=== PATIENT | female | born 1935 | race Caucasian/White ===

== ENCOUNTER 2018-01-11 10:08 | Emergency (ER) | payer MEDICARE, BC ==
[2018-01-11 10:13] VITALS: TEMP 97.5
--- NOTE | 2018-01-11 10:48 | ED ---
ENT HPI - General Source: patient Mode of arrival: ambulatory Limitations: no limitations - History of Present Illness MD complaint: other (Left ear) -: hour(s) (10) Location: L ear Improves with: none Worsens with: none Context-Epistaxis: warfarin use <Sharon Noel - Last Filed: 01/11/18 11:16> <Turner Samuel - Last Filed: 01/11/18 11:50> - General Chief complaint: ENT Stated complaint: Blood in Ear Time Seen by Provider: 01/11/18 10:27 - History of Present Illness Initial comments: 82-year-old female presents with left ear bloody discharge that occurred in the middle the night. Patient states he woke up noticing blood on her pillow. Patient denies any pain or trauma. 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 Patient denies any pain or dizziness no trouble with hearing. Patient states it might feel little "full ". No dizziness no fevers no congestion. Patient denies any recent flying or diving or swimming. No history of this. Patient is treated with Coumadin gets checked on a monthly basis which she has not had any change of her dosage in a long time. Patient takes it faithfully. Patient also Dr. chaves on a regular basis. No sinus congestion no sore throat. (Sharon Noel) - Related Data Home Medications Medication Instructions Recorded Confirmed Albuterol Inhaler [Ventolin Hfa 1 - 2 puff INHALATION RT-Q6H PRN 11/18/15 Inhaler] Montelukast [Singulair] 10 mg PO HS 11/18/15 01/11/18 Warfarin [Coumadin] 5 mg PO MOTUWEFRSA 03/26/16 01/11/18 Warfarin [Coumadin] 7.5 mg PO SUTH 03/26/16 01/11/18 Hydrochlorothiazide [Hydrodiuril] 12.5 mg PO DAILY 01/11/18 01/11/18 Previous Rx's Medication Instructions Recorded Aspirin 81 mg PO DAILY #30 chew 11/21/15 Atorvastatin [Lipitor] 40 mg PO DAILY #30 tab 11/21/15 Losartan [Cozaar] 50 mg PO DAILY #30 tab 11/21/15 Metoprolol Tartrate [Lopressor] 50 mg PO BID #60 tab 11/21/15 Nitroglycerin Sl Tabs [Nitrostat] 0.4 mg SUBLINGUAL Q5M PRN #25 tab 11/21/15 Allergies Allergy/AdvReac Type Severity Reaction Status Date / Time No Known Allergies Allergy Verified 01/11/18 10:13 Review of Systems ROS Other: All systems not noted in ROS Statement are negative. Constitutional: Denies: fever, chills ENT: Reports: other (left ear bloody discharge) Respiratory: Denies: cough Cardiovascular: Denies: chest pain Endocrine: Denies: fatigue Gastrointestinal: Denies: abdominal pain, nausea, vomiting Neurological: Denies: headache, weakness, numbness, paresthesias, vertigo <Sharon Noel - Last Filed: 01/11/18 11:16> ROS Other: All systems not noted in ROS Statement are negative. <Turner Samuel - Last Filed: 01/11/18 11:50> ROS Statement: Those systems with pertinent positive or pertinent negative responses have been documented in the HPI. Past Medical History Past Medical History: Asthma, Cancer, Hypertension Additional Past Medical History / Comment(s): breast ca 1993, radiation, chemo History of Any Multi-Drug Resistant Organisms: None Reported Past Surgical History: Tonsillectomy Additional Past Surgical History / Comment(s): left partial mastectomy 1993 Past Psychological History: No Psychological Hx Reported Smoking Status: Never smoker Past Alcohol Use History: Occasional Past Drug Use History: None Reported - Past Family History Father Family Medical History: Cancer Additional Family Medical History / Comment(s): Lung Mother Family Medical History: Coronary Artery Disease (CAD), CVA/TIA <Sharon Noel - Last Filed: 01/11/18 11:16> General Exam Limitations: no limitations General appearance: alert Head exam: Present: atraumatic, normocephalic, normal inspection Eye exam: Present: normal appearance, PERRL, EOMI. Absent: scleral icterus, conjunctival injection, periorbital swelling ENT exam: Present: normal exam, mucous membranes moist. Absent: TM's normal bilaterally (Left ear canal bright red bloody discharge, some removed gently with a Q-tip) Neck exam: Present: normal inspection. Absent: tenderness, meningismus, lymphadenopathy Respiratory exam: Present: normal lung sounds bilaterally. Absent: respiratory distress, wheezes, rales, rhonchi, stridor Cardiovascular Exam: Present: regular rate, normal rhythm, normal heart sounds. Absent: systolic murmur, diastolic murmur, rubs, gallop, clicks Neurological exam: Present: alert, oriented X3, CN II-XII intact Psychiatric exam: Present: normal affect, normal mood Skin exam: Present: warm, dry, intact, normal color. Absent: rash <Sharon Noel - Last Filed: 01/11/18 11:16> Course <Sharon Noel - Last Filed: 01/11/18 11:16> <Turner Samuel - Last Filed: 01/11/18 11:50> Vital Signs 01/11/18 01/11/18 10:11 11:33 Temperature 97.5 F L Pulse Rate 95 75 Respiratory 16 18 Rate Blood Pressure 156/79 145/81 O2 Sat by Pulse 96 94 L Oximetry - Reevaluation(s) Reevaluation #1: 01/11/18 11:50 PA supervision: I personally saw and examined the patient. I reviewed and agree with the PA findings including all diagnostic interpretations and treatment plans as written unless otherwise stated. (Turner Samuel) Procedures - Ear Wax Removal Left Ear Ear Canal Irrigated by: other (In the room with a gentle normal saline advised large clot removed no active bleeding noted patient tolerated it well no combinations no pain no dizziness.) Ear Canal Irrigated With: warm saline using syringe/angiocath Results: Re-examined: other (bloody discharge) Patient Tolerated Procedure: well, no complications Complications: no problems <Sharon Noel - Last Filed: 01/11/18 11:16> Medical Decision Making <Sharon Noel - Last Filed: 01/11/18 11:16> <Turner Samuel - Last Filed: 01/11/18 11:50> - Medical Decision Making evaluated by dr. samuel as well. we decided to lavage. pt tolerated it well, no perforation no silver nitrate was needed. no complications. Patient instructed not to take her with her ear no foreign body to her ear patient to avoid Q-tips at this time (Sharon Noel) Disposition Is patient prescribed a controlled substance at d/c from ED?: No Time of Disposition: 11:24 <Sharon Noel - Last Filed: 01/11/18 11:16> <Turner Samuel - Last Filed: 01/11/18 11:50> Clinical Impression: Bleeding from left ear Disposition: HOME SELF-CARE Condition: Good Instructions: Abrasion (ED) Referrals: Pino Chaves DO [Primary Care Provider] - 1-2 days
[2018-01-11] MEDS ORDERED: SILVER NITRATE APPLICATOR 1 EACH STICK..EA. TOPICAL STA (11:04)
[2018-01-11 11:34] VITALS: BP 145/81; PULSE 75; RESP 18
== END 2018-01-11 11:33 | disposition home or self-care (01) ==
LOC: EC 10:08
DX: H92.22 Otorrhagia, left ear (principal); J45.909 Unspecified asthma, uncomplicated; I10 Essential (primary) hypertension; Z85.3 Personal history of malignant neoplasm of breast; Z79.01 Long term (current) use of anticoagulants; Z79.899 Other long term (current) drug therapy
CPT/HCPCS: 99282

== ENCOUNTER 2018-03-10 05:34 | Inpatient (IN) | payer MEDICARE, BC ==
--- NOTE | 2018-03-10 06:20 | ED ---
SOB HPI - General Chief Complaint: Shortness of Breath Stated Complaint: JIA Time Seen by Provider: 03/10/18 05:35 Source: patient, family, EMS Mode of arrival: EMS Limitations: no limitations - History of Present Illness Initial Comments: This patient is an 82-year-old woman with history of previous CHF who states that her breathing has not been good for months, but over the course of tonight it is been much worse than usual. She states that she tried using inhaler at home but was not feeling much better. Family phoned EMS and she did feel a bit better after they placed her on oxygen. The patient states that her breathing is made worse if she tries to lie flat. She denies fever or chills. No chest pain. She states she is not really having much of a cough. No change in urination. She denies swelling or pain in the legs. MD Complaint: shortness of breath -: hour(s) Severity: moderate Consistency: constant Improves With: nothing Worsens With: lying flat Known History Of: congestive heart failure Associated Symptoms: denies other symptoms Treatments Prior to Arrival: oxygen - Related Data Home Medications Medication Instructions Recorded Confirmed Albuterol Inhaler [Ventolin Hfa 1 - 2 puff INHALATION RT-Q6H PRN 11/18/15 Inhaler] Montelukast [Singulair] 10 mg PO HS 11/18/15 01/11/18 Warfarin [Coumadin] 5 mg PO MOTUWEFRSA 03/26/16 01/11/18 Warfarin [Coumadin] 7.5 mg PO SUTH 03/26/16 01/11/18 Hydrochlorothiazide [Hydrodiuril] 12.5 mg PO DAILY 01/11/18 01/11/18 Previous Rx's Medication Instructions Recorded Aspirin 81 mg PO DAILY #30 chew 11/21/15 Atorvastatin [Lipitor] 40 mg PO DAILY #30 tab 11/21/15 Losartan [Cozaar] 50 mg PO DAILY #30 tab 11/21/15 Metoprolol Tartrate [Lopressor] 50 mg PO BID #60 tab 11/21/15 Nitroglycerin Sl Tabs [Nitrostat] 0.4 mg SUBLINGUAL Q5M PRN #25 tab 11/21/15 Allergies Allergy/AdvReac Type Severity Reaction Status Date / Time No Known Allergies Allergy Verified 01/11/18 10:13 Review of Systems ROS Statement: Those systems with pertinent positive or pertinent negative responses have been documented in the HPI. ROS Other: All systems not noted in ROS Statement are negative. Constitutional: Denies: fever, chills, weakness Respiratory: Reports: dyspnea, wheezes. Denies: cough, hemoptysis Cardiovascular: Reports: palpitations, orthopnea. Denies: chest pain, edema, syncope Gastrointestinal: Denies: abdominal pain, vomiting, diarrhea Genitourinary: Denies: dysuria, hematuria Musculoskeletal: Denies: back pain Skin: Denies: rash Neurological: Denies: headache, weakness, numbness Past Medical History Past Medical History: Asthma, Cancer, Hypertension Additional Past Medical History / Comment(s): breast ca 1993, radiation, chemo History of Any Multi-Drug Resistant Organisms: None Reported Past Surgical History: Heart Catheterization With Stent, Tonsillectomy Additional Past Surgical History / Comment(s): left partial mastectomy 1993 Past Psychological History: No Psychological Hx Reported Smoking Status: Never smoker Past Alcohol Use History: Occasional Past Drug Use History: None Reported - Past Family History Father Family Medical History: Cancer Additional Family Medical History / Comment(s): Lung Mother Family Medical History: Coronary Artery Disease (CAD), CVA/TIA General Exam Limitations: no limitations General appearance: alert, in no apparent distress Head exam: Present: atraumatic, normocephalic Eye exam: Present: normal appearance. Absent: scleral icterus, conjunctival injection ENT exam: Present: normal oropharynx Neck exam: Present: normal inspection Respiratory exam: Present: rales. Absent: wheezes, rhonchi, stridor, chest wall tenderness, decreased breath sounds Cardiovascular Exam: Present: tachycardia, irregular rhythm, normal heart sounds. Absent: systolic murmur, diastolic murmur, rubs, gallop GI/Abdominal exam: Present: soft. Absent: distended, tenderness, guarding, rebound, rigid, mass Extremities exam: Present: normal inspection, normal capillary refill. Absent: pedal edema, calf tenderness Back exam: Present: normal inspection. Absent: CVA tenderness (R), CVA tenderness (L) Neurological exam: Present: alert Skin exam: Present: warm, dry, intact, normal color. Absent: rash Course Vital Signs 03/10/18 05:44 Temperature 97.6 F Pulse Rate 106 H Respiratory 22 Rate Blood Pressure 153/102 O2 Sat by Pulse 99 Oximetry Medical Decision Making - Lab Data Result diagrams: 03/10/18 06:45 Lab Results 03/10/18 Range/Units 06:45 WBC 10.0 (3.8-10.6) k/uL RBC 4.50 (3.80-5.40) m/uL Hgb 13.1 (11.4-16.0) gm/dL Hct 42.4 (34.0-46.0) % MCV 94.4 (80.0-100.0) fL MCH 29.2 (25.0-35.0) pg MCHC 31.0 (31.0-37.0) g/dL RDW 15.1 (11.5-15.5) % Plt Count 140 L (150-450) k/uL Neutrophils % 87 % Lymphocytes % 7 % Monocytes % 4 % Eosinophils % 1 % Basophils % 0 % Neutrophils # 8.7 H (1.3-7.7) k/uL Lymphocytes # 0.7 L (1.0-4.8) k/uL Monocytes # 0.4 (0-1.0) k/uL Eosinophils # 0.1 (0-0.7) k/uL Basophils # 0.0 (0-0.2) k/uL Hypochromasia Slight - EKG Data -: EKG Interpreted by Or EKG shows normal: axis (Normal), intervals (Normal), QRS complexes (Old septal infarct.), ST-T waves (normal) Rate: tachycardia Interpretation: other (Atrial fibrillation.) Disposition Clinical Impression: Atrial fibrillation with RVR, CHF (congestive heart failure) Disposition: ADMITTED IP TO THIS HOSP Condition: Fair Referrals: Dian Pal MD [STAFF PHYSICIAN] - 1-2 days
--- NOTE | 2018-03-10 06:40 | XR ---
EXAM: XR Chest, 1 View CLINICAL HISTORY: ITS.REASON XR Reason: dyspnea TECHNIQUE: Frontal view of the chest. COMPARISON: 03/26/16 FINDINGS: Lungs: Slight interval increase in bilateral interstitial opacities which may reflect worsening pulmonary edema or other interstitial process. Pleural space: Unremarkable. No pneumothorax. Heart: Heart size appears mildly enlarged possibly exaggerated due to projection. Mediastinum: Unremarkable. Bones/joints: Unremarkable. Soft tissues: Left axillary surgical clips. IMPRESSION: Slight interval increase in bilateral interstitial opacities which may reflect worsening pulmonary edema or other interstitial process.
[2018-03-10 06:56] LABS: Basophils % (A) 0 %; Eosinophils # (A) 0.1 k/uL (0-0.7); Eosinophils % (A) 1 %; HCT 42.4 % (34.0-46.0); HGB 13.1 gm/dL (11.4-16.0); Hypochromasia Slight; Lymphocytes # (A) 0.7 k/uL (1.0-4.8); Lymphocytes % (A) 7 %; MCH 29.2 pg (25.0-35.0); MCV 94.4 fL (80.0-100.0); Mean Platelet Volume 8.7; Monocytes # (A) 0.4 k/uL (0-1.0); Monocytes % (A) 4 %; Neutrophils # (A) 8.7 k/uL (1.3-7.7); Neutrophils % (A) 87 %; Platelet Count 140 k/uL (150-450); RDW 15.1 % (11.5-15.5)
[2018-03-10] MEDS ORDERED: DILTIAZEM DRIP BOLUS FROM BAG 1 MG SOLN IV ONE (07:00)
[2018-03-10] MEDS ORDERED: FUROSEMIDE 10 MG/ML 2 ML VIAL IV STA (07:03)
[2018-03-10 07:07] LABS: ALT 104 U/L (9-52); AST 87 U/L (14-36); Albumin 3.3 g/dL (3.5-5.0); Alkaline Phosphatase 145 U/L (38-126); Anion Gap 5 mmol/L; Blood Urea Nitrogen 18 mg/dL (7-17); Calcium 8.8 mg/dL (8.4-10.2); Carbon Dioxide 29 mmol/L (22-30); Chloride 103 mmol/L (98-107); Glucose 156 mg/dL (74-99); Magnesium 1.8 mg/dL (1.6-2.3); Potassium 4.1 mmol/L (3.5-5.1); Sodium 137 mmol/L (137-145); Total Protein 5.8 g/dL (6.3-8.2)
[2018-03-10 07:13] LABS: D-Dimer 0.51 mg/L FEU (<0.60); INR 3.3 (<1.2); Partial Thromboplastin Time 28.9 sec (22.0-30.0); Prothrombin Time 29.9 sec (9.0-12.0)
[2018-03-10 07:48] LABS: Creatine Kinase 51 U/L (30-135)
[2018-03-10] MEDS ORDERED: DILTIAZEM 50 MG in SODIUM CHLORIDE 0.9% 40 ML IV SCH (08:00)
[2018-03-10 08:01] LABS: Troponin I <0.012 ng/mL (0.000-0.034)
[2018-03-10] MEDS ORDERED: ALBUTEROL NEBULIZED 2.5 MG/3 ML INHALATION PRN (09:17)
[2018-03-10] MEDS ORDERED: INFLUENZA VACCINE (6 MOS+) 60 MCG/0.5 ML SYRINGE IM ONE (11:34)
--- NOTE | 2018-03-10 12:09 | P.CRDCN ---
History of Present Illness Consult date: 03/10/18 Requesting physician: Shay Wilson Consult reason: atrial fibrillation, congestive heart failure Chief complaint: Shortness of breath History of present illness: Is is an 82-year-old female who follows regularly with Dr. Davis in the office. She has a known history of hypertension, bronchial asthma, hyperlipidemia, prior CVA, coronary artery disease with history of circumflex stenting in 2016 patient also has history of paroxysmal atrial fibrillation for which she takes Coumadin for anticoagulation. She presents to the hospital with symptoms of progressively worsening shortness of breath, positive PND and orthopnea. She states that on thickened Thanksgiving she was feeling well but since then has been progressively getting more and more short of breath. Chest x-ray on admission here showed slight interval increase in bilateral interstitial [place] which may reflect worsening pulmonary edema. Her EKG on presentation here showed atrial fibrillation with rapid ventricular response. Blood pressure 134/70 with a heart rate this morning in the 80s, on Cardizem drip. White blood cell count 10.0, hemoglobin 13.1, platelet count 140. D-dimer 0.5. Sodium 137, potassium 4.1, BUN 18, creatinine 0.5. Troponin 0.012, BNP level 3370. INR is 3.3. AST 87, ALT 104, alk phos 145. At the time of my examination this morning, patient is sitting up at bedside, overall feels well, denies any difficulty in breathing. Past Medical History Past Medical History: Atrial Fibrillation, Asthma, Cancer, Hypertension, Myocardial Infarction ([place]) Additional Past Medical History / Comment(s): Paroxysmal Afib, 1993 L breast cancer with surgery/radiation and chemo, pt states she has never had high cholesterol-she was placed on lipitor prophylactically when she had her MO, CHF with HTN emergency when she had her MO. Last Myocardial Infarction Date:: 11/18/15 History of Any Multi-Drug Resistant Organisms: None Reported Past Surgical History: Breast Surgery, Heart Catheterization With Stent, Tonsillectomy Additional Past Surgical History / Comment(s): left partial mastectomy 1993, PCI with stent in 2016, bilateral cataract removals with lens implants. Past Anesthesia/Blood Transfusion Reactions: No Reported Reaction Date of Last Stent Placement:: 2015 Smoking Status: Never smoker - Past Family History Father Family Medical History: Cancer Additional Family Medical History / Comment(s): Lung cancer. Father was a smoker. Mother Family Medical History: Coronary Artery Disease (CAD), CVA/TIA Additional Family Medical History / Comment(s): CVA Medications and Allergies Home Medications Medication Instructions Recorded Confirmed Type Albuterol Inhaler [Ventolin Hfa 1 - 2 puff INHALATION RT-Q4H PRN 11/18/15 History Inhaler] Montelukast [Singulair] 10 mg PO HS 11/18/15 03/10/18 History Aspirin 81 mg PO DAILY #30 chew 11/21/15 03/10/18 Rx Atorvastatin [Lipitor] 40 mg PO DAILY #30 tab 11/21/15 03/10/18 Rx Metoprolol Tartrate [Lopressor] 50 mg PO BID #60 tab 11/21/15 03/10/18 Rx Nitroglycerin Sl Tabs [Nitrostat] 0.4 mg SUBLINGUAL Q5M PRN #25 tab 11/21/15 Rx Hydrochlorothiazide [Hydrodiuril] 12.5 mg PO DAILY 01/11/18 03/10/18 History Calcium Carbonate [Calcium] 600 mg PO DAILY 03/10/18 03/10/18 History Warfarin Sodium 2.5 mg PO TH 03/10/18 03/10/18 History Warfarin Sodium 5 mg PO [id number] 03/10/18 03/10/18 History Allergies Allergy/AdvReac Type Severity Reaction Status Date / Time No Known Allergies Allergy Verified 03/10/18 08:21 Physical Exam Vitals: Vital Signs Temp Pulse Pulse Resp BP BP Pulse Ox 03/10/18 11:20 97.7 F 83 18 134/74 97 03/10/18 10:00 84 19 105/72 96 03/10/18 09:00 85 14 96 03/10/18 08:00 105 H 20 124/73 95 03/10/18 07:03 98.1 F 101 H 20 152/106 98 03/10/18 07:00 96 20 143/93 115 H 03/10/18 06:00 97 20 163/96 97 03/10/18 05:44 97.6 F 106 H 22 153/102 99 03/10/18 05:40 98 Intake and Output 03/09/18 03/10/18 03/10/18 22:59 06:59 14:59 Intake Total 30 Output Total 200 Balance -170 Intake: Intake, IV Titration 30 Amount Diltiazem 50 mg In Sodium 30 Chloride 0.9% 40 ml @ 5 MG/HR 5 mls/hr IV .Q10H [facility] Rx#:[id number] Output: Urine 200 Other: Weight 72.575 kg PHYSICAL EXAMINATION: GENERAL: 82-year-old female in no acute distress at the time of my examination HEENT: Head is atraumatic, normocephalic. Pupils equal, round. Sclera anicteric. Conjunctiva are clear. Mucous membranes of the mouth are moist. Neck is supple. There is elevated jugular venous pressure. No carotid bruit is heard. HEART EXAMINATION: Heart S1 and S2 irregularly irregular CHEST EXAMINATION: Lungs are clear with diminished air entry to bilateral bases. ABDOMEN: Soft, nontender. Bowel sounds are heard. No organomegaly noted. EXTREMITIES: 2+ peripheral pulses with trace to 1+ evidence of peripheral edema and no calf tenderness noted. NEUROLOGIC patient is awake, alert and oriented X3. . Results 03/10/18 06:45 03/10/18 06:45 Cardiac Enzymes 03/10/18 03/10/18 Range/Units 06:45 06:45 AST 87 H (14-36) U/L CK-MB (CK-2) 1.0 (0.0-2.4) ng/mL Troponin I <0.012 (0.000-0.034) ng/mL Coagulation 03/10/18 Range/Units 06:45 PT 29.9 H (9.0-12.0) sec APTT 28.9 (22.0-30.0) sec CBC 03/10/18 Range/Units 06:45 WBC 10.0 (3.8-10.6) k/uL RBC 4.50 (3.80-5.40) m/uL Hgb 13.1 (11.4-16.0) gm/dL Hct 42.4 (34.0-46.0) % Plt Count 140 L (150-450) k/uL Comprehensive Metabolic Panel 03/10/18 Range/Units 06:45 Sodium 137 (137-145) mmol/L Potassium 4.1 (3.5-5.1) mmol/L Chloride 103 (98-107) mmol/L Carbon Dioxide 29 (22-30) mmol/L BUN 18 H (7-17) mg/dL Creatinine 0.57 (0.52-1.04) mg/dL Glucose 156 H (74-99) mg/dL Calcium 8.8 (8.4-10.2) mg/dL AST 87 H (14-36) U/L ALT 104 H (9-52) U/L Alkaline Phosphatase 145 H (38-126) U/L Total Protein 5.8 L (6.3-8.2) g/dL Albumin 3.3 L (3.5-5.0) g/dL Current Medications Generic Name Dose Route Start Last Admin Trade Name Freq PRN Reason Stop Dose Admin Albuterol Sulfate 2.5 mg 03/10/18 09:17 Ventolin Nebulized INHALATION RT-Q4H PRN Shortness Of Breath Aspirin 81 mg 03/11/18 09:00 Aspirin PO DAILY [facility] Atorvastatin Calcium 40 mg 03/11/18 09:00 Lipitor PO DAILY [facility] Furosemide 40 mg 03/10/18 18:00 Lasix IV Q12H [facility] Hydrochlorothiazide 12.5 mg 03/11/18 09:00 Hydrodiuril PO DAILY [facility] Diltiazem HCl 50 mg/ Sodium 50 mls @ 5 mls/hr 03/10/18 08:00 03/10/18 07:38 Chloride IV 5 mg/hr .Q10H [facility] 5 mls/hr Administration 5 MG/HR Metoprolol Tartrate 50 mg 03/10/18 21:00 Lopressor PO BID [facility] Montelukast Sodium 10 mg 03/10/18 21:00 Singulair PO HS [facility] Warfarin Sodium 5 mg 03/11/18 18:00 Coumadin PO [id number]@1800 [facility] Warfarin Sodium 2.5 mg 03/12/18 18:00 Coumadin PO Th@1800 [facility] Intake and Output 03/09/18 03/10/18 03/10/18 22:59 06:59 14:59 Intake Total 30 Output Total 200 Balance -170 Intake: Intake, IV Titration 30 Amount Diltiazem 50 mg In Sodium 30 Chloride 0.9% 40 ml @ 5 MG/HR 5 mls/hr IV .Q10H [facility] Rx#:[id number] Output: Urine 200 Other: Weight 72.575 kg 03/10/18 06:45 03/10/18 06:45 EKG Interpretations (text) KG shows atrial fibrillation with rapid ventricular response Assessment and Plan Plan: Assessment and plan #1 atrial fibrillation with rapid ventricular response, patient has history of paroxysmal atrial fibrillation. #2 known history of coronary artery disease with prior circumflex stenting in 2016 #3 hypertension #4 hyperlipidemia #5 bronchial asthma #6 history of prior CVA #7 congestive heart failure, likely secondary to A. fib with RVR, diastolic acute on chronic Plan We will obtain an echocardiogram with Doppler study, we will also check a free T4 and a TSH level. We will discontinue the IV Cardizem drip and increase the dose of beta [place]. INR today is 3.3, we will give the patient just 2-1/2 of Coumadin today instead of the 5 she is normally scheduled for. Further recommendations to follow. DNP note has been reviewed, I agree with a documented findings and plan of care. Patient was seen and examined.
[2018-03-10] MEDS: METOPROLOL TARTRATE 50 MG TAB PO SCH ×2 (15:14→21:36)
[2018-03-10 16:43] LABS: Creatine Kinase MB 1.1 ng/mL (0.0-2.4); Troponin I <0.012 ng/mL (0.000-0.034)
[2018-03-10] MEDS: SPIRONOLACTONE 25 MG TAB PO SCH (17:46)
[2018-03-10] MEDS: LISINOPRIL 5 MG TAB PO SCH (17:46)
[2018-03-10] MEDS: FUROSEMIDE 10 MG/ML 4 ML VIAL IV SCH (17:55)
[2018-03-10] MEDS ORDERED: MAGNESIUM HYDROXIDE 2,400 MG/10 ML CUP PO PRN (20:09)
[2018-03-10] MEDS ORDERED: ONDANSETRON 4 MG/2 ML VIAL IVP PRN (20:09)
[2018-03-10] MEDS ORDERED: MELATONIN 3 MG TABLET PO PRN (20:09)
[2018-03-10] MEDS ORDERED: CALCIUM CARBONATE 500 MG CHEWABLE PO PRN (20:09)
[2018-03-10] MEDS ORDERED: NALOXONE 0.4 MG/ML 1 ML VIAL IV PRN (20:09)
[2018-03-10] MEDS ORDERED: LACTULOSE 20 GM/30 ML CUP PO PRN (20:09)
[2018-03-10] MEDS ORDERED: LORazepam 0.5 MG TAB PO PRN (20:09)
[2018-03-10] MEDS ORDERED: ACETAMINOPHEN TAB 325 MG TAB PO PRN (20:09)
--- NOTE | 2018-03-10 20:50 | HP ---
HISTORY AND PHYSICAL DATE OF ADMISSION: March 10, 2018 DATE OF SERVICE: March 10, 2018 PRESENTING COMPLAINT: Short of breath. HISTORY OF PRESENTING COMPLAINT: This is a pleasant 82-year-old patient of Dr. Chaves. Also follows with Dr. Davis from Cardiology. Chronic stable medical conditions include asthma, hypertension, coronary artery disease with stent. The patient did have myocardial infarction 2 years ago. For 2 days, patient noticed increasing shortness of breath, slight wheezing, swelling of lower extremities. No fever. No chills. No cough. Just tired and run down. The patient was found to be in congestive heart failure, given IV Lasix to which she is feeling a shade better. Patient's at the bedside. The patient also found to be in atrial fibrillation which is chronic, but with a rapid ventricular rate. REVIEW OF SYSTEMS: CONSTITUTIONAL: Tired. HEENT none. RESPIRATORY as above. CARDIOVASCULAR as above. GASTROINTESTINAL: None. GENITOURINARY: None. MUSCULOSKELETAL: None. DERMATOLOGICAL, HEMATOLOGIC, LYMPHATIC: None. PSYCHIATRY: None. NEUROLOGICAL: None. PAST MEDICAL HISTORY: Atrial fibrillation, asthma, hypertension, coronary artery disease with stent, paroxysmal atrial fibrillation, left breast cancer treated with surgery revision and chemo. PAST SURGICAL HISTORY: Left breast surgery, cardiac cath with stent, left partial mastectomy in , stent in 2015, bilateral cataract with lens implant. 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 Alcohol occasionally. FAMILY HISTORY: Lung cancer. HOME MEDICATIONS: 1. Coumadin 2.5 mg on and 5 mg on Friday, Friday, Friday, Friday, Friday, Friday. 2. Calcium 600 mg a day. 3. Nitrostat 0.4 sublingual q.5 p.r.n. 4. Singulair 10 mg q.h.s. 5. Lopressor 50 mg b.i.d. 6. Hydrochlorothiazide 12.5 p.o. daily. 7. Lipitor 40 mg p.o. daily. 8. Aspirin 81 mg p.o. daily. 9. Ventolin HFA 1 or 2 puffs q.4 p.r.n. ALLERGIES: None. PHYSICAL EXAMINATION: VITAL SIGNS: Vital signs on presentation, temperature 97.6. Pulse 106. Respiration 22, blood pressure 153/102, pulse ox 99% on 2 L. GENERAL APPEARANCE: Average build, sitting up, tired appearing. EYES: Pupils equal, conjunctivae normal. HEENT: External appearance of nose and ears normal. Oral cavity normal. NECK: Neck veins prominent. Mass not palpable. RESPIRATORY: Effort increased. LUNGS: Decreased breath sounds, basal crackles. CARDIOVASCULAR: Heart sounds irregular. Edema present. ABDOMEN: Soft, nontender. Liver and spleen not palpable. LYMPHATICS: No lymph nodes palpable in the neck and axilla. PSYCHIATRY: Alert and oriented x3. Mood and affect normal. NEUROLOGICAL: Pupils equal. Cranial nerves grossly intact. Power and sensation grossly intact. INVESTIGATIONS: Investigations and lab work reviewed in the clinical context. White count 10, hemoglobin 13.1, platelets 140. INR 3.3. Potassium 4.1, BUN 18, creatinine 0.57, AST 87, ALT 104. ProBNP 3370. TSH 5.3. Troponin x2 negative. EKG shows atrial fibrillation, rate uncontrolled, personally reviewed by me. Chest x-ray film personally reviewed by me shows cardiomegaly and pulmonary edema. ASSESSMENT: 1. Acute congestive heart failure exacerbation EF not known in a patient with known from underlying coronary artery disease. 2. Paroxysmal atrial fibrillation currently with rapid ventricular rate. 3. Essential hypertension. 4. Coumadin monitoring. 5. Mild thrombocytopenia. PLAN: Home medications resumed. Lopressor was increased to 50 mg 3 times a day. Coumadin dose was scaled back. Patient is put on IV Lasix. 2D echo cardiogram is pending. Care was discussed with the patient and at the bedside. Questions were answered. Copy to Dr. Chaves. CAILIN / CJ: [id number] /
[2018-03-10] MEDS ORDERED: METOPROLOL TARTRATE 50 MG TAB PO SCH (21:00)
[2018-03-10 21:17] LABS: Creatine Kinase MB 0.9 ng/mL (0.0-2.4); Troponin I <0.012 ng/mL (0.000-0.034)
[2018-03-10] MEDS: MONTELUKAST 10 MG TAB PO SCH (21:36)
[2018-03-11] MEDS: FUROSEMIDE 10 MG/ML 4 ML VIAL IV SCH (05:58)
[2018-03-11 06:18] LABS: Anion Gap 4 mmol/L; Blood Urea Nitrogen 20 mg/dL (7-17); Calcium 8.8 mg/dL (8.4-10.2); Carbon Dioxide 33 mmol/L (22-30); Chloride 103 mmol/L (98-107); Glucose 101 mg/dL (74-99); Potassium 3.9 mmol/L (3.5-5.1); Sodium 140 mmol/L (137-145)
--- NOTE | 2018-03-11 07:02 | ECHOF ---
Referral Reason:afib,chf MEASUREMENTS -------- HEIGHT: 160.0 cm WEIGHT: 72.6 kg BP: 134/74 RVIDd: 2.6 cm (< 3.3) IVSd: 1.0 cm (0.6 - 1.1) LVIDd: 4.3 cm (3.9 - 5.3) LVPWd: 1.0 cm (0.6 - 1.1) IVSs: 1.3 cm LVIDs: 3.4 cm LVPWs: 1.3 cm LAESV Index (A-L): 32.53 ml/m Ao Diam: 2.7 cm (2.0 - 3.7) AV Cusp: 1.5 cm (1.5 - 2.6) LA Diam: 2.9 cm (2.7 - 3.8) MV E Jag: 1.18 m/s MV DecT: 176 ms MV A Jag: 0.43 m/s MV E/A Ratio: 2.77 RAP: 5.00 mmHg RVSP: 34.51 mmHg FINDINGS -------- Atrial fibrillation. This was a technically adequate study. The left ventricular size is normal. Left ventricular wall thickness is normal. There is moderate global hypokinesis of LV . Overall left ventricular systolic function is mild-moderately impaired with, an EF between 40 - 45 %. The right ventricle is normal in size and function. LA is midly dilated 29-33ml/m2. RA appears enlarged. There is mild aortic valve sclerosis. There is no evidence of aortic regurgitation. There is no e vidence of aortic stenosis. The mitral valve leaflets are mildly thickened. Moderate mitral regurgitation is present. Moderate to severe tricuspid regurgitation present. There is no evidence of pulmonary hypertension. The right ventricular systolic pressure, as measured by Doppler, is 34.51mmHg. The pulmonic valve was not well visualized. There is no pulmonic regurgitation present. The aortic root size is normal. Normal inferior vena cava with normal inspiratory collapse consistent with estimated right atrial pre ssure of 5 mmHg. There is no pericardial effusion. CONCLUSIONS -------- 1. Atrial fibrillation. 2. This was a technically adequate study. 3. The left ventricular size is normal. 4. Left ventricular wall thickness is normal. 5. There is moderate global hypokinesis of LV . 6. Overall left ventricular systolic function is mild-moderately impaired with, an EF between 40 - 45 %. 7. LA is midly dilated 29-33ml/m2. 8. RA appears enlarged. 9. There is mild aortic valve sclerosis. 10. The mitral valve leaflets are mildly thickened. 11. Moderate mitral regurgitation is present. 12. Moderate to severe tricuspid regurgitation present. 13. There is no evidence of pulmonary hypertension. 14. The pulmonic valve was not well visualized. 15. There is no pulmonic regurgitation present. 16. The aortic root size is normal. 17. There is no pericardial effusion. CLEAT THROWER: Chauncey Greene RDCS
[2018-03-11] MEDS: SPIRONOLACTONE 25 MG TAB PO SCH (08:47)
[2018-03-11] MEDS: ATORVASTATIN 40 MG TAB PO SCH (08:48)
[2018-03-11] MEDS: ASPIRIN 81 MG PO SCH (08:48)
[2018-03-11] MEDS: METOPROLOL TARTRATE 50 MG TAB PO SCH ×3 (08:48→21:02)
[2018-03-11 09:39] LABS: INR 2.7 (<1.2)
[2018-03-11] MEDS: HYDROCHLOROTHIAZIDE 12.5 MG CAP PO SCH (12:51)
--- NOTE | 2018-03-11 15:47 | P.PN ---
Subjective Progress Note Date: 03/11/18 This is an 82-year-old female who follows regularly with Dr. Davis in the office. She has a known history of hypertension, bronchial asthma, hyperlipidemia, prior CVA, coronary artery disease with history of circumflex stenting in 2016 patient also has history of paroxysmal atrial fibrillation for which she takes Coumadin for anticoagulation. She presents to the hospital with symptoms of progressively worsening shortness of breath, positive PND and orthopnea. She states that on thickened Thanksgiving she was feeling well but since then has been progressively getting more and more short of breath. Chest x-ray on admission here showed slight interval increase in bilateral interstitial [place] which may reflect worsening pulmonary edema. Her EKG on presentation here showed atrial fibrillation with rapid ventricular response. Blood pressure 134/70 with a heart rate this morning in the 80s, on Cardizem drip. White blood cell count 10.0, hemoglobin 13.1, platelet count 140. D-dimer 0.5. Sodium 137, potassium 4.1, BUN 18, creatinine 0.5. Troponin 0.012, BNP level 3370. INR is 3.3. AST 87, ALT 104, alk phos 145. At the time of my examination this morning, patient is sitting up at bedside, overall feels well, denies any difficulty in breathing. 03/11/2018 Patient continues to be in atrial fibrillation this morning, we will start the patient on amiodarone in hopes to convert to normal sinus rhythm. Patient diuresed well through the night last night. Echocardiogram with Doppler study revealed an ejection fraction of 40-45%. Blood pressure 101/60, heart rate in the 70s, 94% on room air. Pro time 24 with an INR of 2.7. Sodium 140, potassium 3.9, BUN 20, creatinine 0.6. We will discontinue the IV Lasix today and start the patient on oral diuretics. Blood pressure was running a low earlier today, we decreased the dose of JOHN inhibitor to 2-1/2, we will give that at noon daily. Objective - Vital Signs Vital signs: Vital Signs Temp 98.0 F 03/11/18 11:15 Pulse 92 03/11/18 11:15 Resp 18 03/11/18 11:15 BP 101/61 03/11/18 11:15 Pulse Ox 94 L 03/11/18 11:15 Intake & Output 03/10/18 03/11/18 03/11/18 18:59 06:59 18:59 Intake Total 430 880 Output Total 200 1700 Balance 230 -1700 880 Weight 72.1 kg Intake: Intake, IV Titration 30 Amount Diltiazem 50 mg In Sodium 30 Chloride 0.9% 40 ml @ 5 MG/HR 5 mls/hr IV .Q10H [facility] Rx#:[id number] Oral 400 880 Output: Urine 200 1700 Other: Voiding Method Toilet - Exam PHYSICAL EXAMINATION: GENERAL: 82-year-old female in no acute distress at the time of my examination HEENT: Head is atraumatic, normocephalic. Pupils equal, round. Sclera anicteric. Conjunctiva are clear. Mucous membranes of the mouth are moist. Neck is supple. There is elevated jugular venous pressure. No carotid bruit is heard. HEART EXAMINATION: Heart S1 and S2 irregularly irregular CHEST EXAMINATION: Lungs are clear to auscultation ABDOMEN: Soft, nontender. Bowel sounds are heard. No organomegaly noted. EXTREMITIES: 2+ peripheral pulses with trace to 1+ evidence of peripheral edema and no calf tenderness noted. NEUROLOGIC patient is awake, alert and oriented X3. - Labs CBC & Chem 7: 03/10/18 06:45 03/11/18 05:33 Labs: Abnormal Lab Results - Last 24 Hours (Table) 03/11/18 03/11/18 Range/Units 05:33 08:51 PT 24.0 H (9.0-12.0) sec INR 2.7 H (<1.2) Carbon Dioxide 33 H (22-30) mmol/L BUN 20 H (7-17) mg/dL Glucose 101 H (74-99) mg/dL Assessment and Plan Plan: Assessment and plan #1 atrial fibrillation with rapid ventricular response, patient has history of paroxysmal atrial fibrillation. #2 known history of coronary artery disease with prior circumflex stenting in 2016 #3 hypertension #4 hyperlipidemia #5 bronchial asthma #6 history of prior CVA #7 congestive heart failure, likely secondary to A. fib with RVR, diastolic acute on chronic Plan Echo cardiogram with Doppler study revealed an ejection fraction of 40-45%. Patient diuresed well with IV Lasix. We will discontinue the IV Lasix and start the patient on oral diuretics. We will also start the patient on a by mouth amiodarone in hopes to convert to normal sinus rhythm. The patient does not convert to normal sinus rhythm, we may consider elective cardioversion. This was discussed with the patient and her daughter in detail. DNP note has been reviewed, I agree with a documented findings and plan of care. Patient was seen and examined.
[2018-03-11] MEDS ORDERED: AMIODARONE 200 MG TAB PO STA (15:58)
[2018-03-11] MEDS ORDERED: WARFARIN 5 MG TAB PO SCH (18:00)
[2018-03-11] MEDS: LISINOPRIL 5 MG TAB PO SCH (18:02)
[2018-03-11] MEDS: MONTELUKAST 10 MG TAB PO SCH (21:02)
[2018-03-11] MEDS: AMIODARONE 200 MG TAB PO SCH (21:02)
--- NOTE | 2018-03-12 05:36 | PN ---
PROGRESS NOTE DATE OF SERVICE: 03/11/2018 PRESENTING COMPLAINT: Short of breath. INTERVAL HISTORY: This patient was seen by me yesterday on 03/11/2018. Patient admitted with CHF exacerbation, had been on IV Lasix. Breathing is much better. Remains in atrial fibrillation. Did tolerate some diet. The patient's daughter is present today. Edema has gone down. REVIEW OF SYSTEMS: Done for constitutional, cardiovascular, GI, pulmonary; relevant findings as above. The patient did walk up to the bathroom. CURRENT MEDICATIONS: Current medications are reviewed include now p.o. Lasix. PHYSICAL EXAMINATION: On examination, temperature 97.6, pulse 61, respiration 18, blood pressure 100/43, pulse ox 94% on room air. GENERAL APPEARANCE: Sitting on bed comfortable. EYES: Pupils equal. Conjunctivae normal. NECK: JVD not raised. Mass not palpable. RESPIRATORY: Effort normal. LUNGS: Improved air entry. CARDIOVASCULAR: Heart sounds irregular. Minimal edema. ABDOMEN: Soft, nontender. Liver and spleen not palpable. PSYCHIATRY: Alert and oriented x3. Mood and affect normal. INVESTIGATIONS: INR is 2.7. Potassium 3.9, BUN 20, creatinine 0.64. ASSESSMENT: 1. Acute congestive heart failure from systolic dysfunction, ejection fraction 40% to 45% with clinical response. 2. Moderate mitral regurgitation along with moderate to severe tricuspid regurgitation, non-rheumatic. 3. Persistent atrial fibrillation. 4. Essential hypertension. 5. Coumadin monitoring. PLAN: Patient was switched over to p.o. Lasix. Encouraged to ambulate the patient in the hallway. Patient did walk in the hallway with the daughter. The patient also started on amiodarone per Cardiology. The patient also on Aldactone and Lopressor. Care was discussed. Will follow. MMODL / IJN: [id number] /
[2018-03-12 07:07] LABS: HCT 39.1 % (34.0-46.0); HGB 12.9 gm/dL (11.4-16.0); MCH 30.4 pg (25.0-35.0); MCV 92.1 fL (80.0-100.0); Mean Platelet Volume 7.6; Platelet Count 131 k/uL (150-450); RBC 4.25 m/uL (3.80-5.40); RDW 14.8 % (11.5-15.5); WBC 6.7 k/uL (3.8-10.6)
[2018-03-12 07:12] LABS: INR 2.6 (<1.2)
[2018-03-12 07:22] LABS: Anion Gap 7 mmol/L; Blood Urea Nitrogen 24 mg/dL (7-17); Calcium 8.5 mg/dL (8.4-10.2); Carbon Dioxide 31 mmol/L (22-30); Chloride 100 mmol/L (98-107); Glucose 104 mg/dL (74-99); Potassium 3.7 mmol/L (3.5-5.1); Sodium 138 mmol/L (137-145)
[2018-03-12] MEDS: METOPROLOL TARTRATE 50 MG TAB PO SCH ×3 (09:17→21:16)
[2018-03-12] MEDS: AMIODARONE 200 MG TAB PO SCH ×2 (09:17→21:16)
[2018-03-12] MEDS: HYDROCHLOROTHIAZIDE 12.5 MG CAP PO SCH (09:17)
[2018-03-12] MEDS: FUROSEMIDE 40 MG TAB PO SCH (09:17)
[2018-03-12] MEDS: ATORVASTATIN 40 MG TAB PO SCH (09:17)
[2018-03-12] MEDS: SPIRONOLACTONE 25 MG TAB PO SCH (09:17)
[2018-03-12] MEDS: ASPIRIN 81 MG PO SCH (09:17)
[2018-03-12 09:55] VITALS: BMI 27.9
[2018-03-12] MEDS: LISINOPRIL 2.5 MG TAB PO SCH (12:49)
--- NOTE | 2018-03-12 13:05 | P.PN ---
Subjective Progress Note Date: 03/12/18 This is an 82-year-old female who follows regularly with Dr. Davis in the office. She has a known history of hypertension, bronchial asthma, hyperlipidemia, prior CVA, coronary artery disease with history of circumflex stenting in 2016 patient also has history of paroxysmal atrial fibrillation for which she takes Coumadin for anticoagulation. She presents to the hospital with symptoms of progressively worsening shortness of breath, positive PND and orthopnea. She states that on thickened Thanksgiving she was feeling well but since then has been progressively getting more and more short of breath. Chest x-ray on admission here showed slight interval increase in bilateral interstitial [place] which may reflect worsening pulmonary edema. Her EKG on presentation here showed atrial fibrillation with rapid ventricular response. Blood pressure 134/70 with a heart rate this morning in the 80s, on Cardizem drip. White blood cell count 10.0, hemoglobin 13.1, platelet count 140. D-dimer 0.5. Sodium 137, potassium 4.1, BUN 18, creatinine 0.5. Troponin 0.012, BNP level 3370. INR is 3.3. AST 87, ALT 104, alk phos 145. At the time of my examination this morning, patient is sitting up at bedside, overall feels well, denies any difficulty in breathing. 03/11/2018 Patient continues to be in atrial fibrillation this morning, we will start the patient on amiodarone in hopes to convert to normal sinus rhythm. Patient diuresed well through the night last night. Echocardiogram with Doppler study revealed an ejection fraction of 40-45%. Blood pressure 101/60, heart rate in the 70s, 94% on room air. Pro time 24 with an INR of 2.7. Sodium 140, potassium 3.9, BUN 20, creatinine 0.6. We will discontinue the IV Lasix today and start the patient on oral diuretics. Blood pressure was running a low earlier today, we decreased the dose of JOHN inhibitor to 2-1/2, we will give that at noon daily. 03/12/2018 Patient seen and examined this morning, continues to be in atrial fibrillation, heart rate in the 70s to 80s. Dr. Mclaughlin did have a discussion with Dr. Davis and the patient, decision was made to proceed with elective cardioversion tomorrow. Patient wishes to think about it a little bit further throughout the afternoon, we will tentatively book this. Objective - Vital Signs Vital signs: Vital Signs Temp 97.6 F 03/12/18 09:10 Pulse 90 03/12/18 11:53 Resp 16 03/12/18 11:53 BP 102/66 03/12/18 11:50 Pulse Ox 95 03/12/18 11:50 Intake & Output 03/11/18 03/12/18 03/12/18 18:59 06:59 18:59 Intake Total 1080 200 360 Output Total 1050 300 Balance 30 -100 360 Weight 71.6 kg 71.6 kg Intake: Oral 1080 200 360 Output: Urine 1050 300 Other: Voiding Method Toilet # Voids 1 1 1 - Exam PHYSICAL EXAMINATION: GENERAL: 82-year-old female in no acute distress at the time of my examination HEENT: Head is atraumatic, normocephalic. Pupils equal, round. Sclera anicteric. Conjunctiva are clear. Mucous membranes of the mouth are moist. Neck is supple. There is elevated jugular venous pressure. No carotid bruit is heard. HEART EXAMINATION: Heart S1 and S2 irregularly irregular CHEST EXAMINATION: Lungs are clear to auscultation ABDOMEN: Soft, nontender. Bowel sounds are heard. No organomegaly noted. EXTREMITIES: 2+ peripheral pulses with trace to 1+ evidence of peripheral edema and no calf tenderness noted. NEUROLOGIC patient is awake, alert and oriented X3. - Labs CBC & Chem 7: 03/12/18 05:54 03/12/18 05:54 Labs: Abnormal Lab Results - Last 24 Hours (Table) 03/12/18 03/12/18 03/12/18 Range/Units 05:54 05:54 05:54 Plt Count 131 L (150-450) k/uL PT 23.0 H (9.0-12.0) sec INR 2.6 H (<1.2) Carbon Dioxide 31 H (22-30) mmol/L BUN 24 H (7-17) mg/dL Glucose 104 H (74-99) mg/dL Assessment and Plan Plan: Assessment and plan #1 atrial fibrillation with rapid ventricular response, patient has history of paroxysmal atrial fibrillation. #2 known history of coronary artery disease with prior circumflex stenting in 2016 #3 hypertension #4 hyperlipidemia #5 bronchial asthma #6 history of prior CVA #7 congestive heart failure, likely secondary to A. fib with RVR, diastolic acute on chronic Plan We will continue by mouth amiodarone, patient has been advised to undergo cardioversion tomorrow the risks and the benefits were explained to her and her daughter in detail. This will be tentatively scheduled for tomorrow, patient does wish to think about it this afternoon. DNP note has been reviewed, I agree with a documented findings and plan of care. Patient was seen and examined.
[2018-03-12] MEDS ORDERED: WARFARIN 2.5 MG TAB PO SCH (18:00)
[2018-03-12] MEDS ORDERED: LACTATED RINGERS 1,000 ML IV SCH (18:45)
[2018-03-12] MEDS: MONTELUKAST 10 MG TAB PO SCH (21:16)
--- NOTE | 2018-03-13 00:16 | PN ---
PROGRESS NOTE DATE OF SERVICE: 03/12/2018. PRESENT COMPLAINT: Tired. INTERVAL HISTORY: Patient admitted with CHF exacerbation and atrial fibrillation. Breathing is much improved. Remains in atrial fibrillation. Has been on amiodarone. Cardiology is planning a cardioversion tomorrow. Daughter at the bedside. The patient has been up and about. REVIEW OF SYSTEMS: Done for constitutional, cardiovascular, GI, pulmonary; relevant findings as above. CURRENT MEDICATIONS: Reviewed, that include Amiodarone, Lipitor, p.o. Lasix, Lopressor, Coumadin. PHYSICAL EXAMINATION: Temperature 97.7, pulse 74, respirations 18, blood pressure 109/72, pulse 95% on room air. GENERAL APPEARANCE: Sitting up, comfortable. EYES: Pupils equal. Conjunctivae normal. NECK JVD not raised. Mass not palpable. Respiratory effort normal. LUNGS: Fair air entry. CARDIOVASCULAR: Heart sounds irregular. No edema. ABDOMEN: Soft, nontender. Liver and spleen not palpable. PSYCHIATRY: Alert and oriented x3. Mood and affect normal. INVESTIGATIONS: White count 6.7, INR 2.6, potassium 3.7, BUN 24, creatinine 0.66. ASSESSMENT: 1. Acute congestive heart failure exacerbation from systolic dysfunction, ejection fraction 40% to 45% with normal being euvolemic. 2. Moderate mitral regurgitation with moderate to severe tricuspid regurgitation, non- rheumatic. 3. Persistent atrial fibrillation. 4. Essential hypertension. 5. Coumadin monitoring. PLAN: Patient is on p.o. Lasix. Will DC the hydrochlorothiazide and also Aldactone. Cardiology is planning for cardioversion tomorrow. Patient also on amiodarone. MMODL / IJN: [id number] /
[2018-03-13] MEDS: SODIUM CHLORIDE 0.9% 1,000 ML IV SCH ×2 (05:37→16:08)
[2018-03-13] MEDS: SPIRONOLACTONE 25 MG TAB PO SCH (08:52)
[2018-03-13] MEDS: ATORVASTATIN 40 MG TAB PO SCH (08:52)
[2018-03-13] MEDS: AMIODARONE 200 MG TAB PO SCH (08:52)
[2018-03-13] MEDS: METOPROLOL TARTRATE 50 MG TAB PO SCH (08:52)
[2018-03-13] MEDS: ASPIRIN 81 MG PO SCH (08:52)
[2018-03-13] MEDS: FUROSEMIDE 40 MG TAB PO SCH (08:53)
[2018-03-13 09:14] LABS: INR 3.1 (<1.2); Prothrombin Time 27.8 sec (9.0-12.0)
[2018-03-13] MEDS ORDERED: IV FLUID CONTINUATION 1,000 ML IV ONE (12:21)
[2018-03-13] MEDS ORDERED: ePHEDrine SULFATE/0.9% NACL/PF 50 MG/5 ML SYRINGE IV ONE (12:25)
[2018-03-13] MEDS ORDERED: PROPOFOL 10 MG/ML 20 ML VIAL IV ONE (12:25)
--- NOTE | 2018-03-13 13:26 | CE ---
CARDIAC ELECTROPHYSIOLOGY REPORT CARDIOVERSION: INDICATION: Atrial fibrillation. PROCEDURE: After explaining the procedure to the patient, its risks and the complications, blood pressure, heart rate, O2 saturation was monitored. After obtaining sedation state and performing transesophageal echocardiogram, a synchronized biphasic cardioversion using 100 joules was unsuccessful in restoring sinus mechanism. Subsequently, 200 joules synchronized biphasic were successful in restoring normal sinus rhythm. There was no immediate complication. CAILIN / KATYAN: [id number] /
--- NOTE | 2018-03-13 13:35 | ECHOT ---
TRANSESOPHAGEAL ECHOCARDIOGRAM INDICATION: Evaluation of left atrial appendage. PROCEDURE: After explaining the procedure to the patient, its risks and the complications, blood pressure, heart rate, O2 saturation was monitored her throat. Her throat was sprayed with Cetacaine. She received sedation per the anesthesia department. The probe was introduced in the esophagus without difficulty. Images were obtained. Following that, the probe was removed. There was no immediate complication. FINDINGS: Left atrial size is dilated. Spontaneous contrast was noted. Left atrial appendage is normal. Left ventricular size is normal. The ejection fraction is estimated 50 % to 55%. The aortic valve appears to be normal. Mild thickening of the mitral valve leaflets noted. Tricuspid valve is normal. Descending thoracic aorta appears to be normal. Contrast bubble study revealed no evidence of shunting across the interatrial septum. No pericardial effusion was noted. Doppler pulse wave and color Doppler obtained and revealed moderate mitral and tricuspid regurgitation. There was no evidence of pulmonary hypertension. No shunting was noted by color Doppler study. CONCLUSION: 1. Dilated left atrium with spontaneous contrast. 2. Mildly impaired left ventricular systolic function with mild global hypokinesis. 3. Moderate mitral and tricuspid regurgitation. 4. No shunting across the interatrial septum. 5. Normal appearance of the descending thoracic aorta with spontaneous contrast. MMODL / IJN: [id number] / [facility] MEDICAL CENTERBernardo
[2018-03-13 15:40] VITALS: BP 131/74; PULSE 70; RESP 14; TEMP 98.3
[2018-03-13] MEDS: LISINOPRIL 2.5 MG TAB PO SCH (17:08)
[2018-03-13] MEDS ORDERED: WARFARIN 2.5 MG TAB PO SCH (18:00)
[2018-03-13] MEDS ORDERED: AMIODARONE 200 MG TAB PO SCH (21:00)
[2018-03-13] MEDS ORDERED: METOPROLOL TARTRATE 50 MG TAB PO SCH (21:00)
--- NOTE | 2018-03-16 07:32 | DS ---
DISCHARGE SUMMARY DATE OF ADMISSION: 03/10/2018 DATE OF DISCHARGE: 03/13/2018 FINAL DIAGNOSES: 1. Acute congestive heart failure exacerbation from systolic dysfunction, ejection fraction 40%-45%. 2. Moderate mitral and severe tricuspid regurgitation, non-rheumatic. 3. Persistent atrial fibrillation, cardioverted. 4. Essential hypertension. 5. Coumadin monitoring. HOSPITAL COURSE: This patient presented with CHF exacerbation, responded well to IV Lasix. Patient also was in atrial fibrillation. A 2D echo showed an EF of 40%-45%. Patient did undergo a ALAINA and then was successfully cardioverted, remained in sinus rhythm by the time of discharge. Overall feeling better. Care was discussed with the patient's family at the bedside. PHYSICAL EXAMINATION: Temperature 98.3, pulse 72, respiration 14, blood pressure 131/74, pulse ox 99% on room air. CARDIOVASCULAR: First and second sounds are normal. No edema. INVESTIGATIONS: INR 3.1, BUN 24, creatinine 0.66. CONSULTATION: Dr. Mclaughlin from Cardiology. DISCHARGE MEDICATIONS: 1. Ventolin 1-2 puffs q.4 p.r.n. 2. Singulair 10 mg q.h.s. 3. Aspirin 81 mg p.o. daily. 4. Lipitor 40 mg p.o. daily. 5. Lopressor 50 mg b.i.d. 6. Nitrostat 0.4 sublingual q.5 p.r.n. 7. Calcium 600 mg p.o. daily. 8. Coumadin 2.5 mg on and 5 mg on other days. 9. Cordarone 200 mg p.o. b.i.d. 10.Lasix 40 mg a day. 11.Zestril 2.5 mg p.o. at noon. 12.Aldactone 12.5 mg p.o. daily. FOLLOW UP: Follow up with Dr. Davis in 1 week; Dr. Chaves in 1 week; Dr. Pal in 2-3 days. MMODL / IJN: [id number] /
--- NOTE | 2018-03-16 09:18 | CDI ---
Last Revision, March 2017 Documentation Clarification Form Date: 03/16/2018 9:16:00 AM From: Liana Alvarenga Rowena Lay, Retail Analyst Hours-8:30 am & 5 pm M-F Admit Date: 03/10/2018 9:15:00 AM Patient Name: Alena Batista Visit Number: [id number] Discharge Date: 03/13/18 ATTENTION: The Clinical Documentation Specialists (CDI) and [facility] Coding Staff appreciate your assistance in clarifying documentation. Please respond to the clarification below the line at the bottom and electronically sign. The CDI & [facility] Coding staff will review the response and follow-up if needed. Please note: Queries are made part of the Legal Health Record. If you have any questions, please contact the author of this message via ITS. Shay Bello MD Conflicting documentation has been found in the medical record. Paroxysmal atrial fibrillation is documented in the consult, H&P, PNs on 03/12 by Jamshid Trujillo. Chronic atrial fibrillaiton is documented in H&P. Persistent atrial fibrillation is documented in 03/12 PNs by you. History/Risk Factors: CHF EKG: atrial fibrillation with RVR with premature ventricular of aberrantly conducted complexes Treatment: IV Cardizem drip, increased beta marina, Coumadin, cardioversion In your opinion what is the most clinically appropriate diagnosis for this patient? Persistent atrial fibrillation Paroxysmal atrial fibrillation Chronic atrial fibrillation Other Unable to determine (no explanation for clinical findings) Please continue to document in your progress notes and discharge summary in order to capture severity of illness and risk of mortality. Include clinical findings that support your diagnosis. persistent atrial fibrillation MTDD
--- NOTE | 2018-03-16 09:26 | CDI ---
Last Revision, March 2017 Documentation Clarification Form Date: 03/16/18 From: Liana Lyle Rowena Lay, Extractor Puller Hours-8:30 am & 5 pm MBrad Admit Date: 03/10/2018 9:15:00 AM Patient Name: Alena Batista Visit Number: [id number] Discharge Date: 03/13/18 ATTENTION: The Clinical Documentation Specialists (CDI) and [facility] Coding Staff appreciate your assistance in clarifying documentation. Please respond to the clarification below the line at the bottom and electronically sign. The CDI & [facility] Coding staff will review the response and follow-up if needed. Please note: Queries are made part of the Legal Health Record. If you have any questions, please contact the author of this message via ITS. Shay Fierro MD Conflicting documentation has been found in the medical record. Acute on chronic diastolic CHF is documented in the cardiology consult and & 03/12 by cardiology. You've documented acute CHF exacerbation from systolic dysfunction in 03/12 PN and the discharge summary. History/Risk Factors: hx CHF and atrial fibrillation ECHO: left ventrincular systolic function is mild-moderately impaired with an EF between 40-45% Treatment: IV Lasix then changed to po Lasix In your opinion what is the most clinically appropriate diagnosis for this patient? Acute on chronic diastolic CHF Acute on chronic systolic CHF Acute on chronic combined diastolic/systolic CHF Other Unable to determine (no explanation for clinical findings) Please continue to document in your progress notes and discharge summary in order to capture severity of illness and risk of mortality. Include clinical findings that support your diagnosis. acute on chronic diastoloic chf exacerbation MTDD
== END 2018-03-13 17:27 | disposition home or self-care (01) | DRG 308 ==
LOC: EC 05:34 → 3SCARD 09:15
PROVIDERS: ADMIT Hospitalist; ATTEND Hospitalist
PROC: 5A2204Z Restoration of Cardiac Rhythm, Single (ICD-10-PCS; principal; 2018-03-13 12:30)
PROC: B24BZZ4 Ultrasonography of Heart with Aorta, Transesophageal (ICD-10-PCS; 2018-03-13 12:30)
DX: I48.1 Persistent atrial fibrillation (principal); I50.33 Acute on chronic diastolic (congestive) heart failure; I11.0 Hypertensive heart disease with heart failure; D69.6 Thrombocytopenia, unspecified; I34.0 Nonrheumatic mitral (valve) insufficiency; I36.1 Nonrheumatic tricuspid (valve) insufficiency; E78.5 Hyperlipidemia, unspecified; I25.10 Atherosclerotic heart disease of native coronary artery without angina pectoris; I25.2 Old myocardial infarction; J45.909 Unspecified asthma, uncomplicated; Z79.01 Long term (current) use of anticoagulants; Z79.82 Long term (current) use of aspirin; Z79.899 Other long term (current) drug therapy; Z85.3 Personal history of malignant neoplasm of breast; Z92.3 Personal history of irradiation; Z92.21 Personal history of antineoplastic chemotherapy; Z95.5 Presence of coronary angioplasty implant and graft; Z90.12 Acquired absence of left breast and nipple; Z86.73 Personal history of transient ischemic attack (TIA), and cerebral infarction without residual deficits; Z98.42 Cataract extraction status, left eye; Z98.41 Cataract extraction status, right eye; Z96.1 Presence of intraocular lens; Z80.1 Family history of malignant neoplasm of trachea, bronchus and lung; Z82.3 Family history of stroke; Z82.49 Family history of ischemic heart disease and other diseases of the circulatory system
CPT/HCPCS: 36415; 71045; 80048; 80053; 82550; 82553; 83735; 83880; 84443; 84484; 85025; 85027; 85379; 85610; 85730; 90686; 92960; 93306; 93312; 93320; 93325; 96365; 96366; 96375; 96376; 99285

== ENCOUNTER 2018-04-09 03:36 | Emergency (ER) | payer MEDICARE, BC ==
[2018-04-09] MEDS ORDERED: MECLIZINE 12.5 MG TAB PO STA (04:29)
--- NOTE | 2018-04-09 05:02 | ED ---
Dizziness HPI - General Chief Complaint: Dizziness Stated Complaint: altered mental status Time Seen by Provider: 04/09/18 04:28 Source: patient, family Mode of arrival: wheelchair Limitations: no limitations - History of Present Illness MD Complaint: dizziness -: hour(s) Timing: sudden onset, awoke with symptoms Description: "room spinning", off-balance History of Same: No History of Trauma: No Severity: moderate Improves With: remaining still Worsens With: movement Associated Symptoms: denies other symptoms - Related Data Home Medications Medication Instructions Recorded Confirmed Albuterol Inhaler [Ventolin Hfa 1 - 2 puff INHALATION RT-Q4H PRN 11/18/15 Inhaler] Montelukast [Singulair] 10 mg PO HS 11/18/15 03/10/18 Calcium Carbonate [Calcium] 600 mg PO DAILY 03/10/18 03/10/18 Warfarin Sodium 2.5 mg PO TH 03/10/18 03/10/18 Warfarin Sodium 5 mg PO SUMOTUWEFRSA 03/10/18 03/10/18 Previous Rx's Medication Instructions Recorded Aspirin 81 mg PO DAILY #30 chew 11/21/15 Atorvastatin [Lipitor] 40 mg PO DAILY #30 tab 11/21/15 Metoprolol Tartrate [Lopressor] 50 mg PO BID #60 tab 11/21/15 Nitroglycerin Sl Tabs [Nitrostat] 0.4 mg SUBLINGUAL Q5M PRN #25 tab 11/21/15 Amiodarone [Cordarone] 200 mg PO BID #60 tab 03/13/18 Furosemide [Lasix] 40 mg PO DAILY #30 tab 03/13/18 Lisinopril [Zestril] 2.5 mg PO 1200 #30 tab 03/13/18 Spironolactone [Aldactone] 12.5 mg PO DAILY #30 tab 03/13/18 Allergies Allergy/AdvReac Type Severity Reaction Status Date / Time No Known Allergies Allergy Verified 03/10/18 08:21 Review of Systems ROS Statement: Those systems with pertinent positive or pertinent negative responses have been documented in the HPI. ROS Other: All systems not noted in ROS Statement are negative. Constitutional: Denies: fever, chills, weakness Eyes: Denies: eye pain, vision change Respiratory: Denies: cough, dyspnea Cardiovascular: Denies: chest pain, palpitations, edema, syncope Gastrointestinal: Reports: nausea. Denies: abdominal pain, vomiting, diarrhea Genitourinary: Denies: dysuria, hematuria Musculoskeletal: Denies: back pain Skin: Denies: rash Neurological: Reports: vertigo. Denies: headache, weakness, numbness, paresthesias Past Medical History Past Medical History: Atrial Fibrillation, Asthma, Cancer, Hypertension, Myocardial Infarction ([place]) Additional Past Medical History / Comment(s): Paroxysmal Afib, 1993 L breast cancer with surgery/radiation and chemo, pt states she has never had high cholesterol-she was placed on lipitor prophylactically when she had her AK, CHF with HTN emergency when she had her AK. Last Myocardial Infarction Date:: 11/18/15 History of Any Multi-Drug Resistant Organisms: None Reported Past Surgical History: Breast Surgery, Heart Catheterization With Stent, Tonsillectomy Additional Past Surgical History / Comment(s): left partial mastectomy 1993, PCI with stent in 2015, bilateral cataract removals with lens implants. Past Anesthesia/Blood Transfusion Reactions: No Reported Reaction Date of Last Stent Placement:: 2015 Past Psychological History: No Psychological Hx Reported Smoking Status: Never smoker - Past Family History Father Family Medical History: Cancer Additional Family Medical History / Comment(s): Lung cancer. Father was a smoker. Mother Family Medical History: Coronary Artery Disease (CAD), CVA/TIA Additional Family Medical History / Comment(s): CVA General Exam Limitations: no limitations General appearance: alert, in no apparent distress Head exam: Present: atraumatic, normocephalic Eye exam: Present: normal appearance, PERRL, EOMI, nystagmus. Absent: scleral icterus, conjunctival injection ENT exam: Present: normal oropharynx Neck exam: Present: normal inspection Respiratory exam: Present: normal lung sounds bilaterally. Absent: respiratory distress, wheezes, rales, rhonchi, stridor Cardiovascular Exam: Present: regular rate, normal rhythm, normal heart sounds. Absent: systolic murmur, diastolic murmur, rubs, gallop GI/Abdominal exam: Present: soft. Absent: distended, tenderness, guarding, rebound, mass Extremities exam: Present: normal inspection, normal capillary refill. Absent: pedal edema, calf tenderness Neurological exam: Present: alert, oriented X3, CN II-XII intact. Absent: motor sensory deficit Skin exam: Present: warm, dry, intact, normal color. Absent: rash Course Vital Signs 04/09/18 04/09/18 04/09/18 03:37 04:32 04:40 Temperature 97.9 F Pulse Rate 73 65 73 Respiratory 16 21 24 Rate Blood Pressure 159/84 130/87 O2 Sat by Pulse 98 94 L 95 Oximetry 04/09/18 04/09/18 04/09/18 05:00 05:22 06:00 Temperature Pulse Rate 75 69 65 Respiratory 15 18 21 Rate Blood Pressure 129/74 129/74 128/93 O2 Sat by Pulse 96 96 Oximetry EKG Findings - EKG Results: EKG: interpreted by ERMD, normal axis, normal ST/T EKG shows: atrial fibrillation (Rate 61 bpm) - AK, Pacemaker, Normal: Myocardial infarction: septal AK (old age or indeterminate) Medical Decision Making - Medical Decision Making This patient is an 82-year-old woman presenting with complaint of vertiginous/ dizzy symptoms. The patient declined full workup, she is mainly interested see if her sodium and potassium were normal. While she was here she did get up to use the bathroom and stated that it felt like the symptoms were gone. In addition, patient's is in atrial fibrillation, however there is good rate control. She believes this may be contributing to her symptoms and would like to follow-up with the systems admin to see if they feel any medication can be added for rhythm control or if she would be a candidate for ablation. - Lab Data Result diagrams: 04/09/18 04:30 04/09/18 04:30 Lab Results 04/09/18 04/09/18 04/09/18 Range/Units 04:30 04:30 04:30 WBC 7.7 (3.8-10.6) k/uL RBC 4.82 (3.80-5.40) m/uL Hgb 14.2 (11.4-16.0) gm/dL Hct 43.5 (34.0-46.0) % MCV 90.2 (80.0-100.0) fL MCH 29.4 (25.0-35.0) pg MCHC 32.6 (31.0-37.0) g/dL RDW 15.1 (11.5-15.5) % Plt Count 134 L (150-450) k/uL Neutrophils % 68 % Lymphocytes % 20 % Monocytes % 6 % Eosinophils % 3 % Basophils % 0 % Neutrophils # 5.3 (1.3-7.7) k/uL Lymphocytes # 1.5 (1.0-4.8) k/uL Monocytes # 0.5 (0-1.0) k/uL Eosinophils # 0.2 (0-0.7) k/uL Basophils # 0.0 (0-0.2) k/uL PT (9.0-12.0) sec INR (<1.2) APTT (22.0-30.0) sec Sodium 136 L (137-145) mmol/L Potassium 4.4 (3.5-5.1) mmol/L Chloride 99 (98-107) mmol/L Carbon Dioxide 26 (22-30) mmol/L Anion Gap 11 mmol/L BUN 48 H (7-17) mg/dL Creatinine 0.93 (0.52-1.04) mg/dL Est GFR (CKD-EPI)AfAm 67 (>60 ml/min/1.73 sqM) Est GFR (CKD-EPI)NonAf 58 (>60 ml/min/1.73 sqM) Glucose 122 H (74-99) mg/dL Plasma Lactic Acid Rigoberto 0.8 (0.7-2.0) mmol/L Calcium 9.4 (8.4-10.2) mg/dL Total Bilirubin 0.8 (0.2-1.3) mg/dL AST 62 H (14-36) U/L ALT 73 H (9-52) U/L Alkaline Phosphatase 130 H (38-126) U/L Troponin I (0.000-0.034) ng/mL Total Protein 6.6 (6.3-8.2) g/dL Albumin 4.0 (3.5-5.0) g/dL Urine Color Urine Appearance (Clear) Urine pH (5.0-8.0) Ur Specific [place] (1.001-1.035) Urine Protein (Negative) Urine Glucose (UA) (Negative) Urine Ketones (Negative) Urine Blood (Negative) Urine Nitrite (Negative) Urine Bilirubin (Negative) Urine Urobilinogen (<2.0) mg/dL Ur Leukocyte Esterase (Negative) Urine RBC (0-5) /hpf Urine WBC (0-5) /hpf Ur Squamous Epith Cells (0-4) /hpf Urine Bacteria (None) /hpf Hyaline Casts (0-2) /lpf 04/09/18 04/09/18 04/09/18 Range/Units 04:30 04:30 05:25 WBC (3.8-10.6) k/uL RBC (3.80-5.40) m/uL Hgb (11.4-16.0) gm/dL Hct (34.0-46.0) % MCV (80.0-100.0) fL MCH (25.0-35.0) pg MCHC (31.0-37.0) g/dL RDW (11.5-15.5) % Plt Count (150-450) k/uL Neutrophils % % Lymphocytes % % Monocytes % % Eosinophils % % Basophils % % Neutrophils # (1.3-7.7) k/uL Lymphocytes # (1.0-4.8) k/uL Monocytes # (0-1.0) k/uL Eosinophils # (0-0.7) k/uL Basophils # (0-0.2) k/uL PT 35.2 H (9.0-12.0) sec INR 3.7 H (<1.2) APTT 35.9 H (22.0-30.0) sec Sodium (137-145) mmol/L Potassium (3.5-5.1) mmol/L Chloride (98-107) mmol/L Carbon Dioxide (22-30) mmol/L Anion Gap mmol/L BUN (7-17) mg/dL Creatinine (0.52-1.04) mg/dL Est GFR (CKD-EPI)AfAm (>60 ml/min/1.73 sqM) Est GFR (CKD-EPI)NonAf (>60 ml/min/1.73 sqM) Glucose (74-99) mg/dL Plasma Lactic Acid Rigoberto (0.7-2.0) mmol/L Calcium (8.4-10.2) mg/dL Total Bilirubin (0.2-1.3) mg/dL AST (14-36) U/L ALT (9-52) U/L Alkaline Phosphatase (38-126) U/L Troponin I <0.012 (0.000-0.034) ng/mL Total Protein (6.3-8.2) g/dL Albumin (3.5-5.0) g/dL Urine Color Yellow Urine Appearance Clear (Clear) Urine pH 5.0 (5.0-8.0) Ur Specific [place] 1.011 (1.001-1.035) Urine Protein Negative (Negative) Urine Glucose (UA) Negative (Negative) Urine Ketones Negative (Negative) Urine Blood Negative (Negative) Urine Nitrite Negative (Negative) Urine Bilirubin Negative (Negative) Urine Urobilinogen <2.0 (<2.0) mg/dL Ur Leukocyte Esterase Moderate H (Negative) Urine RBC 1 (0-5) /hpf Urine WBC 8 H (0-5) /hpf Ur Squamous Epith Cells <1 (0-4) /hpf Urine Bacteria Rare H (None) /hpf Hyaline Casts 4 H (0-2) /lpf Disposition Clinical Impression: Dizziness Disposition: HOME SELF-CARE Condition: Good Instructions: Dizziness (ED) Is patient prescribed a controlled substance at d/c from ED?: No Referrals: Pino Chaves DO [Primary Care Provider] - 1-2 days Vickey Edwards MD [STAFF PHYSICIAN] - 1-2 days
[2018-04-09 05:34] LABS: Basophils % (A) 0 %; Eosinophils # (A) 0.2 k/uL (0-0.7); Eosinophils % (A) 3 %; HCT 43.5 % (34.0-46.0); HGB 14.2 gm/dL (11.4-16.0); Lymphocytes # (A) 1.5 k/uL (1.0-4.8); Lymphocytes % (A) 20 %; MCH 29.4 pg (25.0-35.0); MCHC 32.6 g/dL (31.0-37.0); MCV 90.2 fL (80.0-100.0); Mean Platelet Volume 7.6; Monocytes # (A) 0.5 k/uL (0-1.0); Monocytes % (A) 6 %; Neutrophils # (A) 5.3 k/uL (1.3-7.7); Neutrophils % (A) 68 %; Platelet Count 134 k/uL (150-450); RBC 4.82 m/uL (3.80-5.40); RDW 15.1 % (11.5-15.5); WBC 7.7 k/uL (3.8-10.6)
[2018-04-09 05:44] LABS: INR 3.7 (<1.2); Partial Thromboplastin Time 35.9 sec (22.0-30.0); Prothrombin Time 35.2 sec (9.0-12.0)
[2018-04-09 05:55] LABS: Calcium 9.4 mg/dL (8.4-10.2); Potassium 4.4 mmol/L (3.5-5.1); Total Bilirubin 0.8 mg/dL (0.2-1.3); Total Protein 6.6 g/dL (6.3-8.2)
[2018-04-09 06:03] LABS: Appearance,Urine Clear (Clear); Bacteria,Urine Rare /hpf; Bilirubin,Urine Negative (Negative); Blood,Urine Negative (Negative); Color,Urine Yellow; Glucose,Urine (UA) Negative (Negative); Hyaline Casts,Urine 4 /lpf (0-2); Ketones,Urine Negative (Negative); Leukocyte Esterase,Urine Moderate (Negative); Nitrite,Urine Negative (Negative); Protein,Urine Negative (Negative); RBC,Urine 1 /hpf (0-5); Specific Gravity,Urine 1.011 (1.001-1.035); Squamous Epithelial Cell,Urine <1 /hpf (0-4); Urobilinogen,Urine <2.0 mg/dL (<2.0); WBC,Urine 8 /hpf (0-5)
[2018-04-09 08:08] VITALS: BP 127/90; PULSE 60; RESP 18; TEMP 97
== END 2018-04-09 08:10 | disposition home or self-care (01) ==
LOC: EC 03:36
DX: R42 Dizziness and giddiness (principal); R41.82 Altered mental status, unspecified; J45.909 Unspecified asthma, uncomplicated; I48.0 Paroxysmal atrial fibrillation; I25.2 Old myocardial infarction; Z85.3 Personal history of malignant neoplasm of breast; Z92.21 Personal history of antineoplastic chemotherapy; Z95.5 Presence of coronary angioplasty implant and graft; Z79.01 Long term (current) use of anticoagulants; Z79.899 Other long term (current) drug therapy; Z53.29 Procedure and treatment not carried out because of patient's decision for other reasons
CPT/HCPCS: 36415; 80053; 81001; 83605; 84484; 85025; 85610; 85730; 93005; 99284

== ENCOUNTER 2021-02-07 14:29 | Inpatient (IN) | payer MEDICARE, BC ==
--- NOTE | 2021-02-07 16:00 | XR ---
EXAMINATION TYPE: XR chest 2V DATE OF EXAM: 02/07/2021 COMPARISON: Chest x-ray 03/10/2018, CT 11/18/2015 HISTORY: Cough TECHNIQUE: Frontal and lateral views of the chest are obtained. FINDINGS: There is improved aeration within the lungs as compared to prior exam. There is no evident pneumothorax or pleural effusion. There are prominent lung lines suggesting underlying COPD. The hea rt is enlarged. Prominence of the left hilum could be indicative of pulmonary artery hypertension. Th ere are coronary artery calcifications and probable stent. Thoracic spondylosis is present. IMPRESSION: Cardiomegaly. There is underlying emphysema, coronary artery disease.
[2021-02-07] MEDS ORDERED: IPRATROPIUM 0.5 MG/2.5 ML NEBU INHALATION STA (17:20)
[2021-02-07] MEDS ORDERED: ALBUTEROL NEBULIZED 2.5 MG/3 ML INHALATION STA (17:20)
--- NOTE | 2021-02-07 17:23 | ED ---
General Adult HPI - General Chief complaint: Upper Respiratory Infection Stated complaint: sob/cough Time Seen by Provider: 02/07/21 17:12 Source: patient, RN notes reviewed, old records reviewed Mode of arrival: ambulatory Limitations: no limitations - History of Present Illness Initial comments: 85-year-old female history of coronary artery disease, CHF, asthma presenting with cough and dyspnea. Symptoms have worsened over the past several days. She has no known sick contacts. She denies central chest pain. She denies measured fever. He does report lower extremity edema which is at baseline. - Related Data Home Medications Medication Instructions Recorded Confirmed Montelukast [Singulair] 10 mg PO HS 11/18/15 02/07/21 Warfarin Sodium 3.25 mg PO SUMOWEFR 03/10/18 02/07/21 Warfarin Sodium 5 mg PO TUTHSA 03/10/18 02/07/21 Albuterol Inhaler [Ventolin Hfa 2 puff INHALATION RT-QID PRN 02/07/21 02/07/21 Inhaler] Atorvastatin Calcium [Lipitor] 20 mg PO HS 02/07/21 02/07/21 Azithromycin [Zithromax Z-pack (6 See Taper PO DIRECTED 02/07/21 02/07/21 tabs)] Benzonatate [Benzonatate Perle] 200 mg PO TID PRN 02/07/21 02/07/21 Furosemide [Lasix] 20 mg PO DAILY 02/07/21 02/07/21 lisinopriL [Zestril] 2.5 mg PO DAILY 02/07/21 02/07/21 methylPREDNISolone Dose Pack See Taper PO DIRECTED 02/07/21 02/07/21 [Medrol Dose Pack] Previous Rx's Medication Instructions Recorded Aspirin 81 mg PO DAILY #30 chew 11/21/15 Metoprolol Tartrate [Lopressor] 50 mg PO BID #60 tab 11/21/15 Nitroglycerin Sl Tabs [Nitrostat] 0.4 mg SUBLINGUAL Q5M PRN #25 tab 11/21/15 Allergies Allergy/AdvReac Type Severity Reaction Status Date / Time No Known Allergies Allergy Verified 02/07/21 17:32 Review of Systems ROS Statement: Those systems with pertinent positive or pertinent negative responses have been documented in the HPI. ROS Other: All systems not noted in ROS Statement are negative. Past Medical History Past Medical History: Atrial Fibrillation, Asthma, Cancer, Hypertension, Myocardial Infarction ([place]) Additional Past Medical History / Comment(s): Paroxysmal Afib, 1993 L breast cancer with surgery/radiation and chemo, pt states she has never had high cholesterol-she was placed on lipitor prophylactically when she had her CA, CHF with HTN emergency when she had her CA. Last Myocardial Infarction Date:: 11/18/15 History of Any Multi-Drug Resistant Organisms: None Reported Past Surgical History: Breast Surgery, Heart Catheterization With Stent, Tonsillectomy Additional Past Surgical History / Comment(s): left partial mastectomy 1993, PCI with stent in 2015, bilateral cataract removals with lens implants. Past Anesthesia/Blood Transfusion Reactions: No Reported Reaction Date of Last Stent Placement:: 2015 Past Psychological History: No Psychological Hx Reported Smoking Status: Never smoker Past Alcohol Use History: Occasional Past Drug Use History: None Reported - Past Family History Father Family Medical History: Cancer Additional Family Medical History / Comment(s): Lung cancer. Father was a smoker. Mother Family Medical History: Coronary Artery Disease (CAD), CVA/TIA Additional Family Medical History / Comment(s): CVA General Exam Limitations: no limitations General appearance: alert, in no apparent distress Head exam: Present: atraumatic, normocephalic Eye exam: Present: normal appearance, PERRL ENT exam: Present: normal exam Neck exam: Present: normal inspection. Absent: tenderness, meningismus Respiratory exam: Present: respiratory distress, wheezes, decreased breath s ounds Cardiovascular Exam: Present: regular rate, normal rhythm GI/Abdominal exam: Present: soft. Absent: distended, tenderness, guarding Extremities exam: Present: normal capillary refill, pedal edema Neurological exam: Present: alert, oriented X3, CN II-XII intact. Absent: motor sensory deficit Psychiatric exam: Present: normal affect, normal mood Skin exam: Present: warm, dry, intact. Absent: cyanosis, diaphoretic Course Vital Signs 02/07/21 02/07/21 02/07/21 15:14 17:58 18:10 Temperature 98.3 F Pulse Rate 98 84 83 Respiratory 22 18 18 Rate Blood Pressure 151/91 O2 Sat by Pulse 92 L Oximetry - Reevaluation(s) Reevaluation #1: 02/07/21 17:21 She was placed in the room at 1715. She was evaluated immediately at 1716. Medical Decision Making - Medical Decision Making 85-year-old female presenting with cough and dyspnea. Patient has been treated as an outpatient with steroids and antibiotics. She has used her albuterol inhaler without improvement. No known contact with coronavirus. No measured fever. No central chest pain. She has a history of asthma and CHF. Chest x- ray showing changes consistent with emphysema. No large focal pneumonia. She has a leukocytosis which may be reactive secondary to recent steroid administration. She has a stable hemoglobin. Sodium is low at 125. Negative troponin, mildly elevated BNP of 4000. Coronavirus testing is negative. She will be admitted for multifactorial dyspnea, combination of CHF and COPD. Case discussed with Dr. Wilson who will admit. - Lab Data Result diagrams: 02/07/21 17:43 02/07/21 17:43 Lab Results 02/07/21 02/07/21 02/07/21 Range/Units 15:21 17:43 17:43 WBC 13.9 H (3.8-10.6) k/uL RBC 5.02 (3.80-5.40) m/uL Hgb 16.3 H (11.4-16.0) gm/dL Hct 49.2 H (34.0-46.0) % MCV 98.0 (80.0-100.0) fL MCH 32.5 (25.0-35.0) pg MCHC 33.2 (31.0-37.0) g/dL RDW 12.8 (11.5-15.5) % Plt Count 163 (150-450) k/uL MPV 7.9 Neutrophils % 87 % Lymphocytes % 7 % Monocytes % 5 % Eosinophils % 1 % Basophils % 0 % Neutrophils # 12.0 H (1.3-7.7) k/uL Lymphocytes # 0.9 L (1.0-4.8) k/uL Monocytes # 0.6 (0-1.0) k/uL Eosinophils # 0.1 (0-0.7) k/uL Basophils # 0.0 (0-0.2) k/uL PT 29.8 H (9.0-12.0) sec INR 3.1 H (<1.2) APTT 31.6 H (22.0-30.0) sec Sodium (137-145) mmol/L Potassium (3.5-5.1) mmol/L Chloride (98-107) mmol/L Carbon Dioxide (22-30) mmol/L Anion Gap mmol/L BUN (7-17) mg/dL Creatinine (0.52-1.04) mg/dL Est GFR (CKD-EPI)AfAm (>60 ml/min/1.73 sqM) Est GFR (CKD-EPI)NonAf (>60 ml/min/1.73 sqM) Glucose (74-99) mg/dL Plasma Lactic Acid Rigoberto (0.7-2.0) mmol/L Calcium (8.4-10.2) mg/dL Magnesium (1.6-2.3) mg/dL Total Bilirubin (0.2-1.3) mg/dL AST (14-36) U/L ALT (4-34) U/L Alkaline Phosphatase (38-126) U/L Troponin I (0.000-0.034) ng/mL NT-Pro-B Natriuret Pep pg/mL Total Protein (6.3-8.2) g/dL Albumin (3.5-5.0) g/dL Coronavirus (PCR) Not Detected (Not Detectd) 02/07/21 02/07/21 02/07/21 Range/Units 17:43 17:43 17:43 WBC (3.8-10.6) k/uL RBC (3.80-5.40) m/uL Hgb (11.4-16.0) gm/dL Hct (34.0-46.0) % MCV (80.0-100.0) fL MCH (25.0-35.0) pg MCHC (31.0-37.0) g/dL RDW (11.5-15.5) % Plt Count (150-450) k/uL MPV Neutrophils % % Lymphocytes % % Monocytes % % Eosinophils % % Basophils % % Neutrophils # (1.3-7.7) k/uL Lymphocytes # (1.0-4.8) k/uL Monocytes # (0-1.0) k/uL Eosinophils # (0-0.7) k/uL Basophils # (0-0.2) k/uL PT (9.0-12.0) sec INR (<1.2) APTT (22.0-30.0) sec Sodium 125 L (137-145) mmol/L Potassium 4.4 (3.5-5.1) mmol/L Chloride 89 L (98-107) mmol/L Carbon Dioxide 25 (22-30) mmol/L Anion Gap 11 mmol/L BUN 23 H (7-17) mg/dL Creatinine 0.49 L (0.52-1.04) mg/dL Est GFR (CKD-EPI)AfAm >90 (>60 ml/min/1.73 sqM) Est GFR (CKD-EPI)NonAf 90 (>60 ml/min/1.73 sqM) Glucose 167 H (74-99) mg/dL Plasma Lactic Acid Rigoberto 1.5 (0.7-2.0) mmol/L Calcium 9.2 (8.4-10.2) mg/dL Magnesium 1.9 (1.6-2.3) mg/dL Total Bilirubin 0.8 (0.2-1.3) mg/dL AST 121 H (14-36) U/L ALT 116 H (4-34) U/L Alkaline Phosphatase 254 H (38-126) U/L Troponin I <0.012 (0.000-0.034) ng/mL NT-Pro-B Natriuret Pep pg/mL Total Protein 7.4 (6.3-8.2) g/dL Albumin 4.3 (3.5-5.0) g/dL Coronavirus (PCR) (Not Detectd) 02/07/21 Range/Units 17:45 WBC (3.8-10.6) k/uL RBC (3.80-5.40) m/uL Hgb (11.4-16.0) gm/dL Hct (34.0-46.0) % MCV (80.0-100.0) fL MCH (25.0-35.0) pg MCHC (31.0-37.0) g/dL RDW (11.5-15.5) % Plt Count (150-450) k/uL MPV Neutrophils % % Lymphocytes % % Monocytes % % Eosinophils % % Basophils % % Neutrophils # (1.3-7.7) k/uL Lymphocytes # (1.0-4.8) k/uL Monocytes # (0-1.0) k/uL Eosinophils # (0-0.7) k/uL Basophils # (0-0.2) k/uL PT (9.0-12.0) sec INR (<1.2) APTT (22.0-30.0) sec Sodium (137-145) mmol/L Potassium (3.5-5.1) mmol/L Chloride (98-107) mmol/L Carbon Dioxide (22-30) mmol/L Anion Gap mmol/L BUN (7-17) mg/dL Creatinine (0.52-1.04) mg/dL Est GFR (CKD-EPI)AfAm (>60 ml/min/1.73 sqM) Est GFR (CKD-EPI)NonAf (>60 ml/min/1.73 sqM) Glucose (74-99) mg/dL Plasma Lactic Acid Rigoberto (0.7-2.0) mmol/L Calcium (8.4-10.2) mg/dL Magnesium (1.6-2.3) mg/dL Total Bilirubin (0.2-1.3) mg/dL AST (14-36) U/L ALT (4-34) U/L Alkaline Phosphatase (38-126) U/L Troponin I (0.000-0.034) ng/mL NT-Pro-B Natriuret Pep 4040 pg/mL Total Protein (6.3-8.2) g/dL Albumin (3.5-5.0) g/dL Coronavirus (PCR) (Not Detectd) Disposition Clinical Impression: CHF (congestive heart failure), COPD (chronic obstructive pulmonary disease) Disposition: ADMITTED IP TO THIS [facility] Condition: Stable Is patient prescribed a controlled substance at d/c from ED?: No Referrals: Pino Chaves DO [Primary Care Provider] - 1-2 days Decision to Admit Reason: Admit from EC Decision Date: 02/07/21 Decision Time: 19:27
[2021-02-07 17:50] LABS: Basophils % (A) 0 %; Eosinophils # (A) 0.1 k/uL (0-0.7); Eosinophils % (A) 1 %; HCT 49.2 % (34.0-46.0); HGB 16.3 gm/dL (11.4-16.0); Lymphocytes # (A) 0.9 k/uL (1.0-4.8); Lymphocytes % (A) 7 %; MCH 32.5 pg (25.0-35.0); MCHC 33.2 g/dL (31.0-37.0); Mean Platelet Volume 7.9; Monocytes # (A) 0.6 k/uL (0-1.0); Monocytes % (A) 5 %; Neutrophils % (A) 87 %; Platelet Count 163 k/uL (150-450); RBC 5.02 m/uL (3.80-5.40); RDW 12.8 % (11.5-15.5); WBC 13.9 k/uL (3.8-10.6)
[2021-02-07 17:58] LABS: ALT 116 U/L (4-34); AST 121 U/L (14-36); African American GFR (CKD) >90 (>60 ml/min/1.73 sqM); Albumin 4.3 g/dL (3.5-5.0); Alkaline Phosphatase 254 U/L (38-126); Anion Gap 11 mmol/L; Blood Urea Nitrogen 23 mg/dL (7-17); Calcium 9.2 mg/dL (8.4-10.2); Carbon Dioxide 25 mmol/L (22-30); Chloride 89 mmol/L (98-107); Glucose 167 mg/dL (74-99); Magnesium 1.9 mg/dL (1.6-2.3); Non-African American GFR(CKD) 90 (>60 ml/min/1.73 sqM); Potassium 4.4 mmol/L (3.5-5.1); Sodium 125 mmol/L (137-145); Total Bilirubin 0.8 mg/dL (0.2-1.3); Total Protein 7.4 g/dL (6.3-8.2)
[2021-02-07 18:06] LABS: INR 3.1 (<1.2); Partial Thromboplastin Time 31.6 sec (22.0-30.0); Prothrombin Time 29.8 sec (9.0-12.0)
[2021-02-07] MEDS ORDERED: FUROSEMIDE 10 MG/ML 4 ML VIAL IV STA (19:08)
[2021-02-07] MEDS ORDERED: methylPREDNISolone SOD SUCCI 125 MG/2 ML VIAL IV STA (19:08)
[2021-02-07] MEDS ORDERED: IPRATROPIUM-ALBUTEROL 3 ML NEB INHALATION PRN (19:24)
[2021-02-07] MEDS ORDERED: IPRATROPIUM-ALBUTEROL 3 ML NEB INHALATION SCH (20:00)
[2021-02-07] MEDS ORDERED: ALBUTEROL HFA INHALER INHALATION PRN (20:18)
[2021-02-07] MEDS ORDERED: NITROGLYCERIN SL TABS 0.4 MG TAB SUBLINGUAL PRN (20:18)
[2021-02-07] MEDS ORDERED: MELATONIN 3 MG TABLET PO PRN (20:20)
[2021-02-07] MEDS ORDERED: CALCIUM CARBONATE 500 MG CHEWABLE PO PRN (20:20)
[2021-02-07] MEDS ORDERED: MAG HYDROX/AL HYDROX/SIMETH 30 ML CUP PO PRN (20:20)
[2021-02-07] MEDS ORDERED: LACTULOSE 20 GM/30 ML CUP PO PRN (20:20)
[2021-02-07] MEDS ORDERED: ALPRAZolam 0.25 MG TAB PO PRN (20:20)
[2021-02-07] MEDS ORDERED: ONDANSETRON 4 MG/2 ML VIAL IVP PRN (20:20)
[2021-02-07] MEDS ORDERED: NALOXONE 0.4 MG/ML 1 ML VIAL IV PRN (20:20)
[2021-02-07] MEDS ORDERED: MAGNESIUM HYDROXIDE 2,400 MG/10 ML CUP PO PRN (20:20)
[2021-02-07] MEDS ORDERED: ACETAMINOPHEN TAB 325 MG TAB PO PRN (20:20)
--- NOTE | 2021-02-07 20:52 | P.HPIM ---
History of Present Illness H&P Date: 02/07/21 Chief Complaint: Short of breath This is a pleasant 85-year-old patient of Dr. Chaves. Cardiology Dr. Davis. Chronic stable medical conditions include atrial fibrillation, hypertension, mitral regurgitation, tricuspid regurgitation, CAD with stent in 2016. She last saw Dr. Davis about 2 months ago. And was told that his heart is still weak. Patient presents with increasing shortness of breath. Resting the last 5 days. Has a cough. Yellow sputum. Feels warm and cold. Poor appetite. Denies any edema. Always uses 2 pillows.. Patient gets short-winded with exertion. No obvious fever and chills. Review of systems: GEN.: Tired, decreased appetite EYES: None HEENT: None NECK: None RESPIRATORY: As above CARDIOVASCULAR: As above GASTROINTESTINAL: None GENITOURINARY: None MUSCULOSKELETAL: None LYMPHATICS: None HEMATOLOGICAL: None PSYCHIATRY: None NEUROLOGICAL: None Past medical history to include: Atrial fibrillation, asthma, hypertension, paroxysmal atrial fibrillation, breast cancer treated with surgery radiation chemotherapy with left mastectomy in 1993. Coronary artery disease with stent in 2016. Social history: . Nonsmoker. Alcohol occasionally. 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 EYES: Pupils equal. Conjunctiva normal. HEENT: External appearance of nose and ears normal, oral cavity grossly normal. NECK: JVD raised; masses not palpable. HEART: Heart sounds irregular; no edema. LUNGS: Respiratory rate increased; bilateral basal crackles. ABDOMEN: Soft, nontender, liver spleen not palpable, no masses palpable. PSYCH: Alert and oriented x3; mood and affect normal. NEUROLOGICAL: Cranial nerves grossly intact; no facial asymmetry, power and sensation grossly intact. LYMPHATICS: No lymph nodes palpable in the axilla and neck INVESTIGATIONS, reviewed in the clinical context: WBC 13.9 hemoglobin 16.3 platelets 163 INR 3.1 sodium 125 potassium 4.4 BUN 23 creatinine 0.49 AST 121 ALT 116 proBNP 4040 COVID 19 [PCR]: Not detected Chest x-ray film personally reviewed by me-cardiomegaly. Cephalization EKG tracing personally reviewed by me-atrial fibrillation Assessment and plan: -Acute congestive heart failure exacerbation from systolic dysfunction. EF not known. From underlying CAD IV Lasix 40 mg every 8. Fluid restriction. Follow I's and O's. Follow BMP. Acute tracheobronchitis Omnicef 300 mg twice a day -Acute intermittent asthma exacerbation DuoNeb. Inhaled steroids -Essential hypertension Lopressor 50 mg twice a day Zestril 2.5 mg daily -Mitral and tricuspid regurgitation Follow clinically -Persistent Atrial fibrillation Lopressor 50 mg twice a day -Hyponatremia Avoid free fluid. Fluid restriction 1500 mL daily. IV Lasix. DuoNeb. Inhaled steroids. Resume home medications. Omnicef. Consu lt cardiology. 2-D echocardiogram. Telemetry. Care was discussed with the patient and at the bedside. Questions answered. Given the complexity and severity of patient's condition expect the patient to be in the hospital at least for 2 overnights Past Medical History Past Medical History: Atrial Fibrillation, Asthma, Cancer, Hypertension, Myocardial Infarction ([place]) Additional Past Medical History / Comment(s): Paroxysmal Afib, 1993 L breast cancer with surgery/radiation and chemo, pt states she has never had high patricia sterol-she was placed on lipitor prophylactically when she had her HI, CHF with HTN emergency when she had her HI. Last Myocardial Infarction Date:: 11/18/15 History of Any Multi-Drug Resistant Organisms: None Reported Past Surgical History: Breast Surgery, Heart Catheterization With Stent, Tonsillectomy Additional Past Surgical History / Comment(s): left partial mastectomy 1993, PCI with stent in 2015, bilateral cataract removals with lens implants. Past Anesthesia/Blood Transfusion Reactions: No Reported Reaction Date of Last Stent Placement:: 2015 Past Psychological History: No Psychological Hx Reported Smoking Status: Never smoker Past Alcohol Use History: Occasional Past Drug Use History: None Reported - Past Family History Father Family Medical History: Cancer Additional Family Medical History / Comment(s): Lung cancer. Father was a smoker. Mother Family Medical History: Coronary Artery Disease (CAD), CVA/TIA Additional Family Medical History / Comment(s): CVA Medications and Allergies Home Medications Medication Instructions Recorded Confirmed Type Montelukast [Singulair] 10 mg PO HS 11/18/15 02/07/21 History Aspirin 81 mg PO DAILY #30 chew 11/21/15 02/07/21 Rx Metoprolol Tartrate [Lopressor] 50 mg PO BID #60 tab 11/21/15 02/07/21 Rx Nitroglycerin Sl Tabs [Nitrostat] 0.4 mg SUBLINGUAL Q5M PRN #25 tab 11/21/15 02/07/21 Rx Warfarin Sodium 3.75 mg PO SUMOWEFR 03/10/18 02/07/21 History Warfarin Sodium 5 mg PO TUTHSA 03/10/18 02/07/21 History Albuterol Inhaler [Ventolin Hfa 2 puff INHALATION RT-QID PRN 02/07/21 02/07/21 History Inhaler] Atorvastatin Calcium [Lipitor] 20 mg PO HS 02/07/21 02/07/21 History Azithromycin [Zithromax Z-pack (6 See Taper PO DIRECTED 02/07/21 02/07/21 History tabs)] Benzonatate [Benzonatate Perle] 200 mg PO TID PRN 02/07/21 02/07/21 History Furosemide [Lasix] 20 mg PO DAILY 02/07/21 02/07/21 History lisinopriL [Zestril] 2.5 mg PO DAILY 02/07/21 02/07/21 History methylPREDNISolone Dose Pack See Taper PO DIRECTED 02/07/21 02/07/21 History [Medrol Dose Pack] Allergies Allergy/AdvReac Type Severity Reaction Status Date / Time No Known Allergies Allergy Verified 02/07/21 17:32 Physical Exam Vitals: Vital Signs Temp Pulse Resp BP Pulse Ox 02/07/21 18:10 83 18 02/07/21 17:58 84 18 02/07/21 15:14 98.3 F 98 22 151/91 92 L Intake and Output 02/07/21 02/07/21 02/07/21 06:59 14:59 22:59 Other: Weight 65.771 kg Results CBC & Chem 7: 02/07/21 17:43 02/07/21 17:43 Labs: Abnormal Lab Results - Last 24 Hours (Table) 02/07/21 02/07/21 02/07/21 Range/Units 17:43 17:43 17:43 WBC 13.9 H (3.8-10.6) k/uL Hgb 16.3 H (11.4-16.0) gm/dL Hct 49.2 H (34.0-46.0) % Neutrophils # 12.0 H (1.3-7.7) k/uL Lymphocytes # 0.9 L (1.0-4.8) k/uL PT 29.8 H (9.0-12.0) sec INR 3.1 H (<1.2) APTT 31.6 H (22.0-30.0) sec Sodium 125 L (137-145) mmol/L Chloride 89 L (98-107) mmol/L BUN 23 H (7-17) mg/dL Creatinine 0.49 L (0.52-1.04) mg/dL Glucose 167 H (74-99) mg/dL AST 121 H (14-36) U/L ALT 116 H (4-34) U/L Alkaline Phosphatase 254 H (38-126) U/L
[2021-02-07] MEDS ORDERED: WARFARIN 0.5 MG TAB PO ONE (21:00)
[2021-02-07] MEDS ORDERED: FUROSEMIDE 10 MG/ML 4 ML VIAL IV SCH (21:00)
[2021-02-07] MEDS: FUROSEMIDE 10 MG/ML 4 ML VIAL IV SCH (21:27)
[2021-02-07] MEDS: IPRATROPIUM-ALBUTEROL 3 ML NEB INHALATION SCH (21:52)
[2021-02-07] MEDS: MONTELUKAST 10 MG TAB PO SCH (22:47)
[2021-02-07] MEDS: ATORVASTATIN 20 MG TAB PO SCH ×2 (22:47)
[2021-02-07] MEDS: CEFDINIR 300 MG CAP PO SCH ×2 (22:47→22:51)
[2021-02-07] MEDS: METOPROLOL TARTRATE 50 MG TAB PO SCH (22:47)
[2021-02-08] MEDS ORDERED: methylPREDNISolone SOD SUCCI 125 MG/2 ML VIAL IV SCH
[2021-02-08] MEDS: FUROSEMIDE 10 MG/ML 4 ML VIAL IV SCH ×4 (01:21→22:09)
[2021-02-08 06:52] LABS: INR 3.1 (<1.2); Prothrombin Time 30.2 sec (9.0-12.0)
[2021-02-08 07:03] LABS: African American GFR (CKD) >90 (>60 ml/min/1.73 sqM); Anion Gap 9 mmol/L; Blood Urea Nitrogen 22 mg/dL (7-17); Calcium 9.1 mg/dL (8.4-10.2); Carbon Dioxide 31 mmol/L (22-30); Chloride 92 mmol/L (98-107); Glucose 166 mg/dL (74-99); Non-African American GFR(CKD) 86 (>60 ml/min/1.73 sqM); Potassium 3.9 mmol/L (3.5-5.1); Sodium 132 mmol/L (137-145)
[2021-02-08] MEDS: IPRATROPIUM-ALBUTEROL 3 ML NEB INHALATION SCH ×3 (08:48→21:28)
[2021-02-08] MEDS: BUDESONIDE 1 MG/2 ML NEBU INHALATION SCH ×2 (08:48→21:28)
[2021-02-08] MEDS ORDERED: LEVOFLOXACIN 500 MG TAB PO SCH (09:00)
[2021-02-08] MEDS: ASPIRIN 81 MG PO SCH (10:08)
[2021-02-08] MEDS: METOPROLOL TARTRATE 50 MG TAB PO SCH ×2 (10:09→22:09)
--- NOTE | 2021-02-08 10:38 | ECHOF ---
Referral Reason:CHF MEASUREMENTS -------- HEIGHT: 160.0 cm WEIGHT: 63.0 kg BP: 136/86 RVIDd: 2.7 cm (< 3.3) IVSd: 1.2 cm (0.6 - 1.1) LVIDd: 3.8 cm (3.9 - 5.3) LVPWd: 1.3 cm (0.6 - 1.1) IVSs: 1.5 cm LVIDs: 2.9 cm LVPWs: 1.7 cm LA Diam: 3.3 cm (2.7 - 3.8) LAESV Index (A-L): 27.16 ml/m Ao Diam: 2.9 cm (2.0 - 3.7) AV Cusp: 2.0 cm (1.5 - 2.6) MV EXCURSION: 9.436 mm (> 18.000) MV EF SLOPE: 66 mm/s (70 - 150) EPSS: 1.0 cm RAP: 5.00 mmHg RVSP: 40.42 mmHg FINDINGS -------- This was a technically adequate study. The left ventricular size is normal. There is mild concentric left ventricular hypertrophy. Overa ll left ventricular systolic function is mildly impaired with, an EF between 45 - 50 %. The right ventricle is normal in size. Normal LA size by volume 22+/-6 ml/m2. The right atrium is normal in size. Interatrial and interventricular septum intact. The aortic valve is trileaflet, and appears structurally normal. No aortic stenosis or regurgitation. There is mild aortic valve sclerosis. Mild mitral annular calcification present. Mild tricuspid regurgitation present. There is mild pulmonary hypertension. The right ventricular systolic pressure, as measured by Doppler, is 40.42mmHg. Trace/mild (physiologic) pulmonic regurgitation. The aortic root size is normal. Normal inferior vena cava with normal inspiratory collapse consistent with estimated right atrial pre ssure of 5 mmHg. There is no pericardial effusion. CONCLUSIONS -------- 1. The left ventricular size is normal. 2. There is mild concentric left ventricular hypertrophy. 3. Overall left ventricular systolic function is mildly impaired with, an EF between 45 - 50 %. 4. The aortic valve is trileaflet, and appears structurally normal. No aortic stenosis or regurgitati on. 5. There is mild aortic valve sclerosis. 6. Mild mitral annular calcification present. 7. Mild tricuspid regurgitation present. 8. There is mild pulmonary hypertension. 9. The right ventricular systolic pressure, as measured by Doppler, is 40.42mmHg. 10. Trace/mild (physiologic) pulmonic regurgitation. 11. There is no pericardial effusion. [employer] [place] SPECIALIST: Ana Barboza RDCS
[2021-02-08] MEDS: CEFDINIR 300 MG CAP PO SCH ×2 (10:43→22:09)
[2021-02-08] MEDS: MAGNESIUM OXIDE 400 MG TAB PO SCH (10:47)
--- NOTE | 2021-02-08 12:57 | P.CRDCN ---
History of Present Illness Consult date: 02/08/21 History of present illness: HISTORY OF PRESENT ILLNESS: This is a 85-year-old female with a past medical history significant for chronic persistent atrial fibrillation, hypertension, hyperlipidemia, coronary artery disease with previous stenting, and congestive heart failure. Patient follows in the office with Dr. Davis. We have been asked to see the patient in consultation for congestive heart failure. Patient examined at the bedside. Patient states she presented to the hospital secondary to shortness of breath. She states she has been feeling short of breath for the past 3-4 days. She states she has been compliant with her medications at home. She does report some noncompliance with her salt intake. Patient was found to be in congestive heart failure. She was started on IV Lasix. The patient states she is feeling better at the time of my examination and currently denies shortness of breath. Chest xray cardiomegaly Underlying emphysema. Coronary artery disease. Laboratory data: WBC 13.9. Hemoglobin 16.3. Platelet count 163. INR 3.1. Sodium 132. Potassium 3.9. BUN 22. Creatinine 0.56. Magnesium 1.9. ProBNP 4040. Current home cardiac medications include Coumadin 3.75mg Friday and 5 mg Friday, Lipitor 20 mg daily, lisinopril 2.5 mg daily, metoprolol tartrate 50 M's twice a day, Lasix 20 g daily, and aspirin 81 mg daily Echocardiogram completed revealed ejection fraction 45-50%, mild tricuspid regurgitation, and mild pulmonary hypertension Cardiac catheterization history: [address] Cedeno with PCI to the circumflex REVIEW OF SYSTEMS: At the time of my exam: CONSTITUTIONAL: Denies fever or chills. HEENT: Denies blurred vision, vision changes, or eye pain. Denies hemoptysis CARDIOVASCULAR: Denies chest pain. Denies orthopnea. Denies PND. Denies palpitations RESPIRATORY: Denies shortness of breath. GASTROINTESTINAL: Denies abdominal pain. Denies nausea or vomiting. HEMATOLOGIC: Denies bleeding disorders. GENITOURINARY: Denies any blood in urine. SKIN: Denies pruitis. Denies rash. PHYSICAL EXAM: VITAL SIGNS: Reviewed. GENERAL: Well-developed in no acute distress. HEENT: Head is normocephalic. Pupils are equal, round. Sclerae anicteric. Mucous membranes of the mouth are moist. Neck supple. No JVD or thyromegaly LUNGS: Respirations even and unlabored. Lungs diminished to auscultation bi laterally. HEART: Irregular rate and rhythm. S1 and S2 heard. ABDOMEN: Soft. Nondistended. Nontender. EXTREMITIES: Normal range of motion. No clubbing or cyanosis. Peripheral pulses intact. Trace lower extremity edema NEUROLOGIC: Awake and alert. Oriented x 3. ASSESSMENT: Acute exacerbation of chronic diastolic congestive heart failure Chronic persistent atrial fibrillation on Coumadin Coronary artery disease with PCI to circumflex Hypertension Hyperlipidemia Hyponatremia PLAN: Continue home cardiac medications Monitor INR Continue IV lasix Monitor kidney function Accurate I&O Daily weights Further recommendations pending patient course Nurse practitioner note has been reviewed by physician. Signing provider agrees with the documented findings, assessment, and plan of care. Past Medical History Past Medical History: Atrial Fibrillation, Asthma, Cancer, Hypertension, [place] cardial Infarction ([place]) Additional Past Medical History / Comment(s): Paroxysmal Afib, 1993 L breast cancer with surgery/radiation and chemo, pt states she has never had high cholesterol-she was placed on lipitor prophylactically when she had her [place], CHF with HTN emergency when she had her [place]. Last Myocardial Infarction Date:: 11/18/15 History of Any Multi-Drug Resistant Organisms: None Reported Past Surgical History: Breast Surgery, Heart Catheterization With Stent, Tonsillectomy Additional Past Surgical History / Comment(s): left partial mastectomy 1993, PCI with stent in 2015, bilateral cataract removals with lens implants. Past Anesthesia/Blood Transfusion Reactions: No Reported Reaction Date of Last Stent Placement:: 2015 Past Psychological History: No Psychological Hx Reported Additional Psychological History / Comment(s): Pt resides with her spouse. She is independent. 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 Smoking Status: Never smoker Past Alcohol Use History: Occasional Past Drug Use History: None Reported - Past Family History Father Family Medical History: Cancer Additional Family Medical History / Comment(s): Lung cancer. Father was a smoker. Mother Family Medical History: Coronary Artery Disease (CAD), CVA/TIA Additional Family Medical History / Comment(s): CVA Medications and Allergies Home Medications Medication Instructions Recorded Confirmed Type Montelukast [Singulair] 10 mg PO HS 11/18/15 02/07/21 History Aspirin 81 mg PO DAILY #30 chew 11/21/15 02/07/21 Rx Metoprolol Tartrate [Lopressor] 50 mg PO BID #60 tab 11/21/15 02/07/21 Rx Nitroglycerin Sl Tabs [Nitrostat] 0.4 mg SUBLINGUAL Q5M PRN #25 tab 11/21/15 02/07/21 Rx Warfarin Sodium 3.75 mg PO SUMOWEFR 03/10/18 02/07/21 History Warfarin Sodium 5 mg PO TUTHSA 03/10/18 02/07/21 History Albuterol Inhaler [Ventolin Hfa 2 puff INHALATION RT-QID PRN 02/07/21 02/07/21 History Inhaler] Atorvastatin Calcium [Lipitor] 20 mg PO HS 02/07/21 02/07/21 History Azithromycin [Zithromax Z-pack (6 See Taper PO DIRECTED 02/07/21 02/07/21 History tabs)] Benzonatate [Benzonatate Perle] 200 mg PO TID PRN 02/07/21 02/07/21 History Furosemide [Lasix] 20 mg PO DAILY 02/07/21 02/07/21 History lisinopriL [Zestril] 2.5 mg PO DAILY 02/07/21 02/07/21 History methylPREDNISolone Dose Pack See Taper PO DIRECTED 02/07/21 02/07/21 History [Medrol Dose Pack] Allergies Allergy/AdvReac Type Severity Reaction Status Date / Time No Known Allergies Allergy Verified 02/07/21 17:32 Physical Exam Vitals: Vital Signs Temp Pulse Pulse Resp BP BP Pulse Ox 02/08/21 12:26 90 02/08/21 12:18 89 02/08/21 08:51 82 97 02/08/21 08:00 97.7 F 78 18 126/76 95 02/08/21 04:54 80 02/08/21 04:44 77 02/08/21 04:42 93 L 02/08/21 02:10 97.7 F 84 18 136/86 97 02/08/21 00:38 97.7 F 61 16 117/68 92 L 02/08/21 00:10 84 02/07/21 18:10 83 18 02/07/21 17:58 84 18 02/07/21 15:14 98.3 F 98 22 151/91 92 L Intake and Output 02/07/21 02/08/21 02/08/21 22:59 06:59 14:59 Other: Voiding Method Toilet Toilet # Voids 2 Weight 65.771 kg 63.5 kg Results 02/07/21 17:43 02/08/21 06:14 Cardiac Enzymes 02/07/21 02/07/21 Range/Units 17:43 17:43 AST 121 H (14-36) U/L Troponin I <0.012 (0.000-0.034) ng/mL Coagulation 02/07/21 02/08/21 Range/Units 17:43 06:14 PT 29.8 H 30.2 H (9.0-12.0) sec APTT 31.6 H (22.0-30.0) sec CBC 02/07/21 Range/Units 17:43 WBC 13.9 H (3.8-10.6) k/uL RBC 5.02 (3.80-5.40) m/uL Hgb 16.3 H (11.4-16.0) gm/dL Hct 49.2 H (34.0-46.0) % Plt Count 163 (150-450) k/uL Comprehensive Metabolic Panel 02/07/21 02/08/21 Range/Units 17:43 06:14 Sodium 125 L 132 L (137-145) mmol/L Potassium 4.4 3.9 (3.5-5.1) mmol/L Chloride 89 L 92 L (98-107) mmol/L Carbon Dioxide 25 31 H (22-30) mmol/L BUN 23 H 22 H (7-17) mg/dL Creatinine 0.49 L 0.56 (0.52-1.04) mg/dL Glucose 167 H 166 H (74-99) mg/dL Calcium 9.2 9.1 (8.4-10.2) mg/dL AST 121 H (14-36) U/L ALT 116 H (4-34) U/L Alkaline Phosphatase 254 H (38-126) U/L Total Protein 7.4 (6.3-8.2) g/dL Albumin 4.3 (3.5-5.0) g/dL Current Medications Generic Name Dose Route Start Last Admin Trade Name Freq PRN Reason Stop Dose Admin Acetaminophen 650 mg 02/07/21 20:20 Acetaminophen Tab 325 Mg Tab PO Q6HR PRN Mild Pain or Fever > 100.5 Al Hydroxide/Mg Hydroxide 15 ml 02/07/21 20:20 Mag Hydrox/Al Hydrox/Simeth 30 Ml Cup PO Q6HR PRN Indigestion Albuterol/Ipratropium 3 ml 02/07/21 19:24 02/08/21 04:36 Ipratropium-Albuterol 3 Ml Neb INHALATION 3 ml RT-Q4H PRN Administration Shortness Of Breath Or Wheezing Albuterol/Ipratropium 3 ml 02/07/21 20:45 02/08/21 12:16 Ipratropium-Albuterol 3 Ml Neb INHALATION 3 ml RT-TID SHANNON Administration Alprazolam 0.25 mg 02/07/21 20:20 Alprazolam 0.25 Mg Tab PO Q6HR PRN Anxiety Aspirin 81 mg 02/08/21 09:00 02/08/21 10:08 Aspirin 81 Mg PO 81 mg DAILY SHANNON Administration Atorvastatin Calcium 20 mg 02/07/21 21:00 02/07/21 22:47 Atorvastatin 20 Mg Tab PO Not Given HS SHANNON Budesonide 1 mg 02/08/21 08:00 02/08/21 08:48 Budesonide 1 Mg/2 Ml Nebu INHALATION 1 mg RT-BID SHANNON Administration Calcium Carbonate/Glycine 1,000 mg 02/07/21 20:20 Calcium Carbonate 500 Mg Chewable PO Q4HR PRN Dyspepsia Cefdinir 300 mg 02/07/21 21:00 02/08/21 10:43 Cefdinir 300 Mg Cap PO 300 mg BID SHANNON Administration Furosemide 40 mg 02/07/21 20:45 02/08/21 06:02 Furosemide 10 Mg/Ml 4 Ml Vial IV 40 mg Q8HR@0600,1400,2200 SHANNON Administration Lactulose 20 gm 02/07/21 20:20 Lactulose 20 Gm/30 Ml Cup PO DAILY PRN Constipation Lisinopril 2.5 mg 02/08/21 09:00 02/08/21 10:08 Lisinopril 2.5 Mg Tab PO 2.5 mg DAILY SHANNON Administration Magnesium Hydroxide 2,400 mg 02/07/21 20:20 Magnesium Hydroxide 2,400 Mg/10 Ml Cup PO DAILY PRN Constipation Magnesium Oxide 200 mg 02/08/21 10:45 02/08/21 10:47 Magnesium Oxide 400 Mg Tab PO 200 mg DAILY SHANNON Administration Melatonin 3 mg 02/07/21 20:20 Melatonin 3 Mg Tablet PO HS PRN Insomnia Metoprolol Tartrate 50 mg 02/07/21 21:00 02/08/21 10:09 Metoprolol Tartrate 50 Mg Tab PO 50 mg BID SHANNON Administration Miscellaneous Information 1 each 02/07/21 20:19 Warfarin Per Pharmacy MISCELLANE DIRECTED PRN Per Protocol Protocol Montelukast Sodium 10 mg 02/07/21 21:00 02/07/21 22:47 Montelukast 10 Mg Tab PO 10 mg HS SHANNON Administration Naloxone HCl 0.2 mg 02/07/21 20:20 Naloxone 0.4 Mg/Ml 1 Ml Vial IV Q2M PRN Opioid Reversal Nitroglycerin 0.4 mg 02/07/21 20:18 Nitroglycerin Sl Tabs 0.4 Mg Tab SUBLINGUAL Q5M PRN Chest Pain Ondansetron HCl 4 mg 02/07/21 20:20 Ondansetron 4 Mg/2 Ml Vial IVP Q8HR PRN Nausea And Vomiting Warfarin Sodium 0 mg 02/08/21 18:00 Warfarin 0.5 Mg Tab PO 02/08/21 18:01 ONCE ONE Intake and Output 02/07/21 02/08/21 02/08/21 22:59 06:59 14:59 Other: Voiding Method Toilet Toilet # Voids 2 Weight 65.771 kg 63.5 kg 02/07/21 17:43 02/08/21 06:14
--- NOTE | 2021-02-08 13:27 | P.PN ---
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 Cardiology Dr. Davis. Chronic stable medical conditions include atrial fibrillation, hypertension, mitral regurgitation, tricuspid regurgitation, CAD with stent in 2016. She last saw Dr. Davis about 2 months ago. And was told that his heart is still weak. Patient presents with increasing shortness of breath. Resting the last 5 days. Has a cough. Yellow sputum. Feels warm and cold. Poor appetite. Denies any edema. Always uses 2 pillows.. Patient gets short-winded with exertion. No obvious fever and chills. Admitted with CHF exacerbation, acute tracheal bronchitis, asthma exacerbation. Started on DuoNeb, by mouth Omnicef, IV Lasix. 02/08/2021: Sitting up in bed. Tired. Short of breath. Slight cough. Had some breakfast. Review of systems: Was done for constitutional, cardiovascular, GI, pulmonary. relevant finding as above Active Medications Acetaminophen (Acetaminophen Tab 325 Mg Tab) 650 mg PO Q6HR PRN PRN Reason: Mild Pain or Fever > 100.5 Al Hydroxide/Mg Hydroxide (Mag Hydrox/Al Hydrox/Simeth 30 Ml Cup) 15 ml PO Q6HR PRN PRN Reason: Indigestion Albuterol/Ipratropium (Ipratropium-Albuterol 3 Ml Neb) 3 ml INHALATION RT-Q4H PRN PRN Reason: Shortness Of Breath Or Wheezing Last Admin: 02/08/21 04:36 Dose: 3 ml Documented by: Albuterol/Ipratropium (Ipratropium-Albuterol 3 Ml Neb) 3 ml INHALATION RT-TID [facility] Last Admin: 02/08/21 12:16 Dose: 3 ml Documented by: Alprazolam (Alprazolam 0.25 Mg Tab) 0.25 mg PO Q6HR PRN PRN Reason: Anxiety Aspirin (Aspirin 81 Mg) 81 mg PO DAILY [facility] Last Admin: 02/08/21 10:08 Dose: 81 mg Documented by: Atorvastatin Calcium (Atorvastatin 20 Mg Tab) 20 mg PO HS [facility] Last Admin: 02/07/21 22:47 Dose: Not Given Documented by: Budesonide (Budesonide 1 Mg/2 Ml Nebu) 1 mg INHALATION RT-BID [facility] Last Admin: 02/08/21 08:48 Dose: 1 mg Documented by: Calcium Carbonate/Glycine (Calcium Carbonate 500 Mg Chewable) 1,000 mg PO Q4HR PRN PRN Reason: Dyspepsia Cefdinir (Cefdinir 300 Mg Cap) 300 mg PO BID [facility] Last Admin: 02/08/21 10:43 Dose: 300 mg Documented by: Furosemide (Furosemide 10 Mg/Ml 4 Ml Vial) 40 mg IV Q8HR@0600,1400,2200 [facility] Last Admin: 02/08/21 06:02 Dose: 40 mg Documented by: Lactulose (Lactulose 20 Gm/30 Ml Cup) 20 gm PO DAILY PRN PRN Reason: Constipation Lisinopril (Lisinopril 2.5 Mg Tab) 2.5 mg PO DAILY [facility] Last Admin: 02/08/21 10:08 Dose: 2.5 mg Documented by: Magnesium Hydroxide (Magnesium Hydroxide 2,400 Mg/10 Ml Cup) 2,400 mg PO DAILY PRN PRN Reason: Constipation Magnesium Oxide (Magnesium Oxide 400 Mg Tab) 200 mg PO DAILY [facility] Last Admin: 02/08/21 10:47 Dose: 200 mg Documented by: Melatonin (Melatonin 3 Mg Tablet) 3 mg PO HS PRN PRN Reason: Insomnia Metoprolol Tartrate (Metoprolol Tartrate 50 Mg Tab) 50 mg PO BID [facility] Last Admin: 02/08/21 10:09 Dose: 50 mg Documented by: Miscellaneous Information (Warfarin Per Pharmacy) 1 each MISCELLANE DIRECTED PRN; Protocol PRN Reason: Per Protocol Montelukast Sodium (Montelukast 10 Mg Tab) 10 mg PO HS [facility] Last Admin: 02/07/21 22:47 Dose: 10 mg Documented by: Naloxone HCl (Naloxone 0.4 Mg/Ml 1 Ml Vial) 0.2 mg IV Q2M PRN PRN Reason: Opioid Reversal Nitroglycerin (Nitroglycerin Sl Tabs 0.4 Mg Tab) 0.4 mg SUBLINGUAL Q5M PRN PRN Reason: Chest Pain Ondansetron HCl (Ondansetron 4 Mg/2 Ml Vial) 4 mg IVP Q8HR PRN PRN Reason: Nausea And Vomiting Warfarin Sodium (Warfarin 0.5 Mg Tab) 0 mg PO ONCE ONE Stop: 02/08/21 18:01 Past medical history to include: Atrial fibrillation, asthma, hypertension, paroxysmal atrial fibrillation, breast cancer treated with surgery radiation chemotherapy with left mastectomy in 1993. Coronary artery disease with stent in 2016. Social history: . Nonsmoker. 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 Tired. Awake. EYES: Pupils equal. Conjunctiva normal. HEENT: External appearance of nose and ears normal, oral cavity grossly normal. NECK: JVD raised; masses not palpable. HEART: Heart sounds irregular; no edema. LUNGS: Respiratory rate increased; bilateral basal crackles. ABDOMEN: Soft, nontender, liver spleen not palpable, no masses palpable. PSYCH: Alert and oriented x3; mood and affect tired INVESTIGATIONS, reviewed in the clinical context: February 08: INR 3.1 sodium 132 potassium 3.9 BUN 22 creatinine 0.56. Pro- calcitonin 0.11 2-D echocardiogram: EF 45-50% WBC 13.9 hemoglobin 16.3 platelets 163 INR 3.1 sodium 125 potassium 4.4 BUN 23 creatinine 0.49 AST 121 ALT 116 proBNP 4040 COVID 19 [PCR]: Not detected Chest x-ray film personally reviewed by me-cardiomegaly. Cephalization EKG tracing personally reviewed by me-atrial fibrillation Assessment and plan: -Acute congestive heart failure exacerbation from systolic and diastolic dysfunction. EF 45-50%. From underlying CAD: Slow to respond Continue IV Lasix 40 mg every 8. Fluid restriction. Follow I's and O's. Follow BMP. Cardiology Acute tracheobronchitis Omnicef 300 mg twice a day -Acute intermittent asthma exacerbation: A respond DuoNeb. Inhaled steroids -Essential hypertension Lopressor 50 mg twice a day Zestril 2.5 mg daily -Mitral and tricuspid regurgitation Follow clinically -Persistent Atrial fibrillation Lopressor 50 mg twice a day -Hyponatremia Avoid free fluid. Fluid restriction 1500 mL daily. IV Lasix. DuoNeb. Inhaled steroids. Omnicef. Consult cardiology. Discussed with patient. Follow
[2021-02-08] MEDS ORDERED: WARFARIN 5 MG TAB PO SCH (18:00)
[2021-02-08] MEDS ORDERED: WARFARIN 0.5 MG TAB PO ONE (18:00)
[2021-02-08] MEDS: MONTELUKAST 10 MG TAB PO SCH (22:08)
[2021-02-08] MEDS: ATORVASTATIN 20 MG TAB PO SCH (22:09)
[2021-02-09] MEDS: FUROSEMIDE 10 MG/ML 4 ML VIAL IV SCH (05:52)
[2021-02-09 07:54] LABS: African American GFR (CKD) 88 (>60 ml/min/1.73 sqM); Anion Gap 7 mmol/L; Blood Urea Nitrogen 33 mg/dL (7-17); Calcium 9.1 mg/dL (8.4-10.2); Carbon Dioxide 37 mmol/L (22-30); Chloride 88 mmol/L (98-107); Glucose 106 mg/dL (74-99); Non-African American GFR(CKD) 76 (>60 ml/min/1.73 sqM); Potassium 4.3 mmol/L (3.5-5.1); Sodium 132 mmol/L (137-145)
[2021-02-09] MEDS: BUDESONIDE 1 MG/2 ML NEBU INHALATION SCH ×2 (07:59→20:22)
[2021-02-09] MEDS: IPRATROPIUM-ALBUTEROL 3 ML NEB INHALATION SCH ×3 (07:59→20:22)
[2021-02-09 08:03] LABS: INR 2.3 (<1.2); Prothrombin Time 22.7 sec (9.0-12.0)
[2021-02-09] MEDS: MAGNESIUM OXIDE 400 MG TAB PO SCH (08:40)
[2021-02-09] MEDS: METOPROLOL TARTRATE 50 MG TAB PO SCH ×2 (08:40→21:01)
[2021-02-09] MEDS: ASPIRIN 81 MG PO SCH (08:40)
[2021-02-09] MEDS: CEFDINIR 300 MG CAP PO SCH ×2 (08:41→21:01)
--- NOTE | 2021-02-09 08:42 | P.PN ---
Subjective Progress Note Date: 02/09/21 HISTORY OF PRESENT ILLNESS: This is a 85-year-old female with a past medical history significant for chronic persistent atrial fibrillation, hypertension, hyperlipidemia, coronary artery disease with previous stenting, and congestive heart failure. Patient follows in the office with Dr. Davis. We have been asked to see the patient in consultation for congestive heart failure. Patient examined at the bedside. Patient states she presented to the hospital secondary to shortness of breath. She states she has been feeling short of breath for the past 3-4 days. She states she has been compliant with her medications at home. She does report some noncompliance with her salt intake. Patient was found to be in congestive heart failure. She was started on IV Lasix. The patient states she is feeling better at the time of my examination and currently denies shortness of breath. Chest xray cardiomegaly Underlying emphysema. Coronary artery disease. Laboratory data: WBC 13.9. Hemoglobin 16.3. Platelet count 163. INR 3.1. Sodium 132. Potassium 3.9. BUN 22. Creatinine 0.56. Magnesium 1.9. ProBNP 4040. Current home cardiac medications include Coumadin 3.75mg Friday and 5 mg Friday, Lipitor 20 mg daily, lisinopril 2.5 mg daily, metoprolol tartrate 50 M's twice a day, Lasix 20 g daily, and aspirin 81 mg daily Echocardiogram completed revealed ejection fraction 45-50%, mild tricuspid regurgitation, and mild pulmonary hypertension Cardiac catheterization history: [address] Cedeno with PCI to the circumflex 02/09/2021 Patient examined this morning. She is sitting in the chair. She denies chest pain or pressure. She reports mild shortness of breath. She reports a nonproductive cough. PHYSICAL EXAM: VITAL SIGNS: Reviewed. GENERAL: Well-developed in no acute distress. HEENT: Head is normocephalic. Pupils are equal, round. Sclerae anicteric. Mucous membranes of the mouth are moist. Neck supple. No JVD or thyromegaly LUNGS: Respirations even and unlabored. Lungs diminished to auscultation bilaterally, mild wheezing noted in right lung base. HEART: Irregular rate and rhythm. S1 and S2 heard. ABDOMEN: Soft. Nondistended. Nontender. EXTREMITIES: Normal range of motion. No clubbing or cyanosis. Peripheral pulses intact. No lower extremity edema NEUROLOGIC: Awake and alert. Oriented x 3. ASSESSMENT: Acute exacerbation of chronic diastolic congestive heart failure Chronic persistent atrial fibrillation on Coumadin Coronary artery disease with PCI to circumflex Hypertension Hyperlipidemia Hyponatremia PLAN: Continue home cardiac medications Discontinue IV lasix. Begin oral lasix 40mg daily Patient is stable from a cardiac standpoint. We will sign off. Please reconsult if needed Nurse practitioner note has been reviewed by physician. Signing provider agrees with the documented findings, assessment, and plan of care. Objective - Vital Signs Vital signs: Vital Signs Temp 98.2 F 02/09/21 01:20 Pulse 77 02/09/21 01:20 Resp 18 02/08/21 20:00 BP 103/66 02/09/21 01:20 Pulse Ox 90 L 02/09/21 01:20 Intake & Output 02/08/21 02/09/21 02/09/21 18:59 06:59 18:59 Intake Total 471 Output Total 1550 Balance -1079 Weight 63.3 kg Intake: Oral 471 Output: Urine 1550 Other: Voiding Method Toilet Toilet # Bowel Movements 0 - Labs CBC & Chem 7: 02/07/21 17:43 02/09/21 06:58 Labs: Abnormal Lab Results - Last 24 Hours (Table) 02/08/21 02/09/21 02/09/21 Range/Units 06:14 06:58 06:58 PT 22.7 H (9.0-12.0) sec INR 2.3 H (<1.2) Sodium 132 L (137-145) mmol/L Chloride 88 L (98-107) mmol/L Carbon Dioxide 37 H (22-30) mmol/L BUN 33 H (7-17) mg/dL Glucose 106 H (74-99) mg/dL Procalcitonin 0.11 H (0.02-0.09) ng/mL
[2021-02-09] MEDS ORDERED: FUROSEMIDE 40 MG TAB PO SCH (09:00)
[2021-02-09] MEDS ORDERED: WARFARIN 3 MG TAB PO ONE (18:00)
[2021-02-09] MEDS ORDERED: WARFARIN 2.5 MG TAB PO SCH (18:00)
--- NOTE | 2021-02-09 18:06 | P.PN ---
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 Cardiology Dr. Davis. Chronic stable medical conditions include atrial fibrillation, hypertension, mitral regurgitation, tricuspid regurgitation, CAD with stent in 2016. She last saw Dr. Davis about 2 months ago. And was told that his heart is still weak. Patient presents with increasing shortness of breath. Resting the last 5 days. Has a cough. Yellow sputum. Feels warm and cold. Poor appetite. Denies any edema. Always uses 2 pillows.. Patient gets short-winded with exertion. No obvious fever and chills. Admitted with CHF exacerbation, acute tracheal bronchitis, asthma exacerbation. Started on DuoNeb, by mouth Omnicef, IV Lasix. 02/08/2021: Sitting up in bed. Tired. Short of breath. Slight cough. Had some breakfast. 02/09/2021: Patient had good urine output. Tired. Had about 50% of her breakfast and lunch. IV Lasix discontinued by cardiology. 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 For tomorrow Review of systems: Was done for constitutional, cardiovascular, GI, pulmonary. relevant finding as above Active Medications Acetaminophen (Acetaminophen Tab 325 Mg Tab) 650 mg PO Q6HR PRN PRN Reason: Mild Pain or Fever > 100.5 Al Hydroxide/Mg Hydroxide (Mag Hydrox/Al Hydrox/Simeth 30 Ml Cup) 15 ml PO Q6HR PRN PRN Reason: Indigestion Albuterol/Ipratropium (Ipratropium-Albuterol 3 Ml Neb) 3 ml INHALATION RT-Q4H PRN PRN Reason: Shortness Of Breath Or Wheezing Last Admin: 02/08/21 04:36 Dose: 3 ml Documented by: Albuterol/Ipratropium (Ipratropium-Albuterol 3 Ml Neb) 3 ml INHALATION RT-TID [facility] Last Admin: 02/09/21 12:31 Dose: 3 ml Documented by: Alprazolam (Alprazolam 0.25 Mg Tab) 0.25 mg PO Q6HR PRN PRN Reason: Anxiety Aspirin (Aspirin 81 Mg) 81 mg PO DAILY [facility] Last Admin: 02/09/21 08:40 Dose: 81 mg Documented by: Atorvastatin Calcium (Atorvastatin 20 Mg Tab) 20 mg PO HS [facility] Last Admin: 02/08/21 22:09 Dose: 20 mg Documented by: Budesonide (Budesonide 1 Mg/2 Ml Nebu) 1 mg INHALATION RT-BID [facility] Last Admin: 02/09/21 07:59 Dose: Not Given Documented by: Calcium Carbonate/Glycine (Calcium Carbonate 500 Mg Chewable) 1,000 mg PO Q4HR PRN PRN Reason: Dyspepsia Cefdinir (Cefdinir 300 Mg Cap) 300 mg PO BID [facility] Last Admin: 02/09/21 08:41 Dose: 300 mg Documented by: Furosemide (Furosemide 40 Mg Tab) 40 mg PO DAILY [facility] Lactulose (Lactulose 20 Gm/30 Ml Cup) 20 gm PO DAILY PRN PRN Reason: Constipation Lisinopril (Lisinopril 2.5 Mg Tab) 2.5 mg PO DAILY [facility] Last Admin: 02/09/21 08:41 Dose: 2.5 mg Documented by: Magnesium Hydroxide (Magnesium Hydroxide 2,400 Mg/10 Ml Cup) 2,400 mg PO DAILY PRN PRN Reason: Constipation Magnesium Oxide (Magnesium Oxide 400 Mg Tab) 200 mg PO DAILY [facility] Last Admin: 02/09/21 08:40 Dose: 200 mg Documented by: Melatonin (Melatonin 3 Mg Tablet) 3 mg PO HS PRN PRN Reason: Insomnia Metoprolol Tartrate (Metoprolol Tartrate 50 Mg Tab) 50 mg PO BID [facility] Last Admin: 02/09/21 08:40 Dose: 50 mg Documented by: Miscellaneous Information (Warfarin Per Pharmacy) 1 each MISCELLANE DIRECTED PRN; Protocol PRN Reason: Per Protocol Montelukast Sodium (Montelukast 10 Mg Tab) 10 mg PO HS [facility] Last Admin: 02/08/21 22:08 Dose: 10 mg Documented by: Naloxone HCl (Naloxone 0.4 Mg/Ml 1 Ml Vial) 0.2 mg IV Q2M PRN PRN Reason: Opioid Reversal Nitroglycerin (Nitroglycerin Sl Tabs 0.4 Mg Tab) 0.4 mg SUBLINGUAL Q5M PRN PRN Reason: Chest Pain Ondansetron HCl (Ondansetron 4 Mg/2 Ml Vial) 4 mg IVP Q8HR PRN PRN Reason: Nausea And Vomiting Past medical history to include: Atrial fibrillation, asthma, hypertension, paroxysmal atrial fibrillation, breast cancer treated with surgery radiation chemotherapy with left mastectomy in 1993. Coronary artery disease with stent in 2016. Social history: . 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 Awake. EYES: Pupils equal. Conjunctiva normal. HEENT: External appearance of nose and ears normal, oral cavity grossly normal. NECK: JVD raised; masses not palpable. HEART: Heart sounds irregular; no edema. LUNGS: Respiratory rate increased; improved with entry. ABDOMEN: Soft, nontender, liver spleen not palpable, no masses palpable. PSYCH: Alert and oriented x3; mood and affect tired INVESTIGATIONS, reviewed in the clinical context: February 09: INR 2.3 sodium 132 potassium 4.3 bicarb 37 BUN 33 creatinine 0.73 February 08: INR 3.1 sodium 132 potassium 3.9 BUN 22 creatinine 0.56. Pro-c alcitonin 0.11 2-D echocardiogram: EF 45-50% WBC 13.9 hemoglobin 16.3 platelets 163 INR 3.1 sodium 125 potassium 4.4 BUN 23 creatinine 0.49 AST 121 ALT 116 proBNP 4040 COVID 19 [PCR]: Not detected Chest x-ray film personally reviewed by me-cardiomegaly. Cephalization EKG tracing personally reviewed by me-atrial fibrillation Assessment and plan: -Acute congestive heart failure exacerbation from systolic and diastolic dysfunction. EF 45-50%. From underlying CAD: Better IV Lasix 40 mg every 8-discontinued. Fluid restriction. Follow I's and O's. Follow BMP. Cardiology Acute tracheobronchitis Omnicef 300 mg twice a day -Metabolic alkalosis from diuresis Lasix discontinued today. -Acute intermittent asthma exacerbation: A respond DuoNeb. Inhaled steroids -Essential hypertension Lopressor 50 mg twice a day Zestril 2.5 mg daily -Mitral and tricuspid regurgitation Follow clinically -Persistent Atrial fibrillation Lopressor 50 mg twice a day -Hyponatremia Avoid free fluid. Fluid restriction 1500 mL daily. IV Lasix discontinued. Continue DuoNeb. Omnicef. Discussed with the patient. Increase activity.
[2021-02-09] MEDS: ATORVASTATIN 20 MG TAB PO SCH (21:02)
[2021-02-09] MEDS: MONTELUKAST 10 MG TAB PO SCH (21:02)
[2021-02-10 03:23] VITALS: PULSE 71; RESP 18
[2021-02-10 07:10] VITALS: BP 104/63; TEMP 97.6
[2021-02-10] MEDS: BUDESONIDE 1 MG/2 ML NEBU INHALATION SCH (08:09)
[2021-02-10] MEDS: IPRATROPIUM-ALBUTEROL 3 ML NEB INHALATION SCH ×2 (08:10→12:01)
[2021-02-10] MEDS: MAGNESIUM OXIDE 400 MG TAB PO SCH (08:59)
[2021-02-10] MEDS: ASPIRIN 81 MG PO SCH (08:59)
[2021-02-10] MEDS: CEFDINIR 300 MG CAP PO SCH (09:00)
[2021-02-10] MEDS ORDERED: FUROSEMIDE 40 MG TAB PO SCH (09:00)
[2021-02-10] MEDS: METOPROLOL TARTRATE 50 MG TAB PO SCH (09:00)
[2021-02-10 12:09] LABS: African American GFR (CKD) >90 (>60 ml/min/1.73 sqM); Anion Gap 9 mmol/L; Blood Urea Nitrogen 40 mg/dL (7-17); Calcium 8.8 mg/dL (8.4-10.2); Carbon Dioxide 29 mmol/L (22-30); Chloride 89 mmol/L (98-107); Glucose 107 mg/dL (74-99); Non-African American GFR(CKD) 79 (>60 ml/min/1.73 sqM); Sodium 127 mmol/L (137-145)
[2021-02-10 12:11] LABS: Potassium 4.6 mmol/L (3.5-5.1)
[2021-02-10 12:34] LABS: INR 1.7 (<1.2); Prothrombin Time 17.1 sec (9.0-12.0)
--- NOTE | 2021-02-10 16:04 | P.DS ---
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 Cardiology Dr. Davis. Chronic stable medical conditions include atrial fibrillation, hypertension, mitral regurgitation, tricuspid regurgitation, CAD with stent in 2016. She last saw Dr. Davis about 2 months ago. And was told that his heart is still weak. Patient presents with increasing shortness of breath. Resting the last 5 days. Has a cough. Yellow sputum. Feels warm and cold. Poor appetite. Denies any edema. Always uses 2 pillows.. Patient gets short-winded with exertion. No obvious fever and chills. Admitted with CHF exacerbation, acute tracheal bronchitis, asthma exacerbation. Started on DuoNeb, by mouth Omnicef, IV Lasix. 02/08/2021: Sitting up in bed. Tired. Short of breath. Slight cough. Had some breakfast. 02/09/2021: Patient had good urine output. Tired. Had about 50% of her breakfast and lunch. IV Lasix discontinued by cardiology. 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 For tomorrow 02/10/2021: Doing well. Daughter the bedside. Fluid balance is discussed. Medication discussed. Will complete a course of oral antibiotic. Follow-up with cardiology. Discussion and discharge planning more than 35 minutes Consultation: Lindsay Avila from cardiology Past medical history to include: Atrial fibrillation, asthma, hypertension, paroxysmal atrial fibrillation, breast cancer treated with surgery radiation chemotherapy with left mastectomy in 1993. Coronary artery disease with stent in 2016. Social history: . 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 EYES: Pupils equal. Conjunctiva normal. HEENT: External appearance of nose and ears normal, oral cavity grossly normal. NECK: JVD raised; masses not palpable. HEART: Heart sounds irregular; no edema. LUNGS: Respiratory rate normal; improved with entry. ABDOMEN: Soft, nontender, liver spleen not palpable, no masses palpable. PSYCH: Alert and oriented x3; mood and affect normal INVESTIGATIONS, reviewed in the clinical context: February 10: INR 1.7 sodium 127 potassium 4.6 creatinine 0.71 February 09: INR 2.3 sodium 132 potassium 4.3 bicarb 37 BUN 33 creatinine 0.73 February 08: INR 3.1 sodium 132 potassium 3.9 BUN 22 creatinine 0.56. Pro-haydee citonin 0.11 2-D echocardiogram: EF 45-50% WBC 13.9 hemoglobin 16.3 platelets 163 INR 3.1 sodium 125 potassium 4.4 BUN 23 creatinine 0.49 AST 121 ALT 116 proBNP 4040 COVID 19 [PCR]: Not detected Chest x-ray film personally reviewed by me-cardiomegaly. Cephalization EKG tracing personally reviewed by me-atrial fibrillation Assessment and plan: -Acute congestive heart failure exacerbation from systolic and diastolic dysfunction. EF 45-50%. From underlying CAD: Better IV Lasix 40 mg every 8-discontinued. Fluid restriction. Follow I's and O's. Follow BMP. Lasix 40 mg daily Acute tracheobronchitis Omnicef 300 mg twice a day-5 days -Metabolic alkalosis from diuresis -Acute intermittent asthma exacerbation: Responded DuoNeb. Inhaled steroids -Essential hypertension Lopressor 50 mg twice a day Zestril 2.5 mg daily -Mitral and tricuspid regurgitation Follow clinically -Persistent Atrial fibrillation Lopressor 50 mg twice a day -Hyponatremia Avoid free fluid. Fluid restriction discussed Disposition: Home Patient Condition at Discharge: Stable Plan - Discharge Summary Discharge Rx Participant: Yes New Discharge Prescriptions: New Cefdinir [Omnicef] 300 mg PO BID #10 cap Continue Montelukast [Singulair] 10 mg PO HS Metoprolol Tartrate [Lopressor] 50 mg PO BID #60 tab Nitroglycerin Sl Tabs [Nitrostat] 0.4 mg SUBLINGUAL Q5M PRN #25 tab PRN Reason: Chest Pain Aspirin 81 mg PO DAILY #30 chew Warfarin Sodium 5 mg PO TUTHSA Warfarin Sodium 3.75 mg PO SUMOWEFR lisinopriL [Zestril] 2.5 mg PO DAILY Albuterol Inhaler [Ventolin Hfa Inhaler] 2 puff INHALATION RT-QID PRN PRN Reason: Shortness Of Breath Atorvastatin Calcium [Lipitor] 20 mg PO HS Furosemide [Lasix] 40 mg PO DAILY #0 Discontinued methylPREDNISolone Dose Pack [Medrol Dose Pack] See Taper PO DIRECTED Azithromycin [Zithromax Z-pack (6 tabs)] See Taper PO DIRECTED Benzonatate [Benzonatate Perle] 200 mg PO TID PRN PRN Reason: Cough Discharge Medication List Montelukast [Singulair] 10 mg PO HS 11/18/15 [History] Aspirin 81 mg PO DAILY #30 chew 11/21/15 [Rx] Metoprolol Tartrate [Lopressor] 50 mg PO BID #60 tab 11/21/15 [Rx] Nitroglycerin Sl Tabs [Nitrostat] 0.4 mg SUBLINGUAL Q5M PRN #25 tab 11/21/15 [Rx] Warfarin Sodium 3.75 mg PO SUMOWEFR 03/10/18 [History] Warfarin Sodium 5 mg PO TUTHSA 03/10/18 [History] Albuterol Inhaler [Ventolin Hfa Inhaler] 2 puff INHALATION RT-QID PRN 02/07/21 [History] Atorvastatin Calcium [Lipitor] 20 mg PO HS 02/07/21 [History] lisinopriL [Zestril] 2.5 mg PO DAILY 02/07/21 [History] Cefdinir [Omnicef] 300 mg PO BID #10 cap 02/10/21 [Rx] Furosemide [Lasix] 40 mg PO DAILY #0 02/10/21 [Rx] Follow up Appointment(s)/Referral(s): Lucy Davis MD [STAFF PHYSICIAN] - 1 Week (Weekend discharge) Pino Chaves DO [Primary Care Provider] - 1-2 days (Weekend discharge) Patient Instructions/Handouts: Heart Failure (DC) Activity/Diet/Wound Care/Special Instructions: bmp - 3 days Discharge Disposition: HOME SELF-CARE
== END 2021-02-10 12:17 | disposition home or self-care (01) | DRG 292 ==
LOC: EC 14:29 → 4SSUR 18:54
PROVIDERS: ADMIT Hospitalist; ATTEND Hospitalist
DX: I11.0 Hypertensive heart disease with heart failure (principal); J45.21 Mild intermittent asthma with (acute) exacerbation; E87.1 Hypo-osmolality and hyponatremia; E87.3 Alkalosis; I48.19 Other persistent atrial fibrillation; I50.43 Acute on chronic combined systolic (congestive) and diastolic (congestive) heart failure; E78.5 Hyperlipidemia, unspecified; I08.1 Rheumatic disorders of both mitral and tricuspid valves; I25.10 Atherosclerotic heart disease of native coronary artery without angina pectoris; I25.2 Old myocardial infarction; J20.9 Acute bronchitis, unspecified; J43.9 Emphysema, unspecified; Z20.822 Contact with and (suspected) exposure to COVID-19; Z79.01 Long term (current) use of anticoagulants; Z79.82 Long term (current) use of aspirin; Z79.899 Other long term (current) drug therapy; Z80.1 Family history of malignant neoplasm of trachea, bronchus and lung; Z82.3 Family history of stroke; Z82.49 Family history of ischemic heart disease and other diseases of the circulatory system; Z85.3 Personal history of malignant neoplasm of breast; Z91.19 Patient's noncompliance with other medical treatment and regimen; Z95.5 Presence of coronary angioplasty implant and graft; Z96.1 Presence of intraocular lens; Z79.52 Long term (current) use of systemic steroids; Z90.12 Acquired absence of left breast and nipple; Z92.21 Personal history of antineoplastic chemotherapy
CPT/HCPCS: 36415; 71046; 80048; 80053; 83605; 83735; 83880; 84145; 84484; 85025; 85610; 85730; 87635; 93306; 94640; 94760; 96374; 96375; 99285